=== PATIENT | male | born 1985 | race Caucasian/White ===

== ENCOUNTER 2021-05-25 18:37 | Inpatient (IN) | payer OTHER ==
[2021-05-25] MEDS ORDERED: SODIUM CHLORIDE 0.9% 1,000 ML IV STA (21:15)
[2021-05-25] MEDS ORDERED: HYDROmorphone 1 MG/ML 1 ML SYRINGE IVP STA (21:15)
[2021-05-25] MEDS ORDERED: SODIUM CHLORIDE 0.9% 500 ML 500 ML IV STA (21:15)
[2021-05-25] MEDS ORDERED: ONDANSETRON 4 MG/2 ML VIAL IVP STA (21:15)
--- NOTE | 2021-05-25 21:27 | ED ---
Abdominal Pain HPI - General Chief Complaint: Abdominal Pain Stated Complaint: Abdominal Pain Time Seen by Provider: 05/25/21 21:02 Source: EMS Mode of arrival: EMS Limitations: no limitations - History of Present Illness Initial Comments: 35-year-old male patient with past history significant for pancreatitis presents to the emergency department today for evaluation of right upper quadrant abdominal pain. Patient states the pain started yesterday and has worsened. Denies any nausea or vomiting. Denies constipation or diarrhea. Denies radiation of the pain through to his back. Has not had any fevers. States his pain is worse than his usual pancreatitis pain. Denies taking any medication for his symptoms. Denies history of abdominal surgery. He denies any shortness of breath. States he does have history of heavy alcohol use, last intake was 05/20/21. - Related Data Home Medications Medication Instructions Recorded Confirmed Folic Acid 0.8 mg PO DAILY 05/25/21 05/25/21 Magnesium 250 mg PO DAILY 05/25/21 05/25/21 Potassium Gluconate [Potassium 99 mg PO DAILY 05/25/21 05/25/21 Gluconate ER] Thiamine HCl [Vitamin B-1] 100 mg PO DAILY 05/25/21 05/25/21 Allergies Allergy/AdvReac Type Severity Reaction Status Date / Time No Known Allergies Allergy Verified 05/25/21 23:15 Review of Systems ROS Statement: Those systems with pertinent positive or pertinent negative responses have been documented in the HPI. ROS Other: All systems not noted in ROS Statement are negative. Past Medical History Additional Past Medical History / Comment(s): pancrentitis History of Any Multi-Drug Resistant Organisms: None Reported Past Surgical History: No Surgical Hx Reported Past Psychological History: No Psychological Hx Reported Smoking Status: Current every day smoker Past Alcohol Use History: Occasional Past Drug Use History: None Reported General Exam Limitations: no limitations General appearance: alert, in no apparent distress, other (This is a well- developed, well-nourished adult male in mild distress related to pain.) ENT exam: Present: normal exam, normal oropharynx, mucous membranes moist Respiratory exam: Present: normal lung sounds bilaterally. Absent: respiratory distress, wheezes, rales, rhonchi, stridor Cardiovascular Exam: Present: normal rhythm, tachycardia, normal heart sounds. Absent: systolic murmur, diastolic murmur, rubs, gallop, clicks GI/Abdominal exam: Present: soft, tenderness (Midepigastric, right upper quadrant), normal bowel sounds. Absent: distended, guarding, rebound, rigid Neurological exam: Present: alert, oriented X3, CN II-XII intact Psychiatric exam: Present: normal affect, normal mood Skin exam: Present: warm, dry, intact, normal color. Absent: rash Course Vital Signs 05/25/21 05/25/21 05/25/21 20:02 21:45 23:14 Temperature 98.4 F Pulse Rate 119 H 101 H 111 H Respiratory 20 18 18 Rate Blood Pressure 144/88 135/95 137/100 O2 Sat by Pulse 98 97 96 Oximetry 05/26/21 00:09 Temperature 98.1 F Pulse Rate 94 Respiratory 18 Rate Blood Pressure 136/98 O2 Sat by Pulse 97 Oximetry Medical Decision Making - Medical Decision Making 35-year-old male patient presented for evaluation of upper abdominal pain. Does have history of pancreatitis felt to be related to alcohol use. Physical examination did reveal upper abdominal tenderness. Labs reviewed and did reveal elevated white blood cell count at 18. Lipase is 2994. He is given IV fluids, pain medication, nausea medication. He'll be admitted to the hospital for further evaluation and monitoring. GI was consulted. Patient is agreeable to this plan. My attending is Dr. Hearn. - Lab Data Result diagrams: 05/25/21 21:41 05/25/21 21:41 Lab Results 05/25/21 05/25/21 05/25/21 Range/Units 21:41 21:41 21:41 WBC 18.1 H (3.8-10.6) k/uL RBC 4.92 (4.30-5.90) m/uL Hgb 16.2 (13.0-17.5) gm/dL Hct 48.5 (39.0-53.0) % MCV 98.6 (80.0-100.0) fL MCH 33.0 (25.0-35.0) pg MCHC 33.4 (31.0-37.0) g/dL RDW 12.7 (11.5-15.5) % Plt Count 380 (150-450) k/uL MPV 6.9 Neutrophils % 81 % Lymphocytes % 12 % Monocytes % 4 % Eosinophils % 1 % Basophils % 1 % Neutrophils # 14.7 H (1.3-7.7) k/uL Lymphocytes # 2.2 (1.0-4.8) k/uL Monocytes # 0.7 (0-1.0) k/uL Eosinophils # 0.2 (0-0.7) k/uL Basophils # 0.1 (0-0.2) k/uL Sodium 140 (137-145) mmol/L Potassium 3.6 (3.5-5.1) mmol/L Chloride 102 (98-107) mmol/L Carbon Dioxide 22 (22-30) mmol/L Anion Gap 16 mmol/L BUN 14 (9-20) mg/dL Creatinine 0.58 L (0.66-1.25) mg/dL Est GFR (CKD-EPI)AfAm >90 (>60 ml/min/1.73 sqM) Est GFR (CKD-EPI)NonAf >90 (>60 ml/min/1.73 sqM) Glucose 122 H (74-99) mg/dL Plasma Lactic Acid Rob (0.7-2.0) mmol/L Calcium 10.2 (8.4-10.2) mg/dL Total Bilirubin 1.0 (0.2-1.3) mg/dL AST 42 (17-59) U/L ALT 17 (4-49) U/L Alkaline Phosphatase 149 H (38-126) U/L Total Protein 8.0 (6.3-8.2) g/dL Albumin 4.6 (3.5-5.0) g/dL Lipase 3993 H (23-300) U/L Urine Color Dark Yellow Urine Appearance Clear (Clear) Urine pH 6.0 (5.0-8.0) Ur Specific [place] 1.033 (1.001-1.035) Urine Protein 2+ H (Negative) Urine Glucose (UA) Negative (Negative) Urine Ketones 3+ H (Negative) Urine Blood Negative (Negative) Urine Nitrite Negative (Negative) Urine Bilirubin 1+ H (Negative) Urine Urobilinogen 4.0 (<2.0) mg/dL Ur Leukocyte Esterase Negative (Negative) Urine WBC <1 (0-5) /hpf Hyaline Casts 9 H (0-2) /lpf Urine Mucus Many H (None) /hpf 05/25/21 Range/Units 21:41 WBC (3.8-10.6) k/uL RBC (4.30-5.90) m/uL Hgb (13.0-17.5) gm/dL Hct (39.0-53.0) % MCV (80.0-100.0) fL MCH (25.0-35.0) pg MCHC (31.0-37.0) g/dL RDW (11.5-15.5) % Plt Count (150-450) k/uL MPV Neutrophils % % Lymphocytes % % Monocytes % % Eosinophils % % Basophils % % Neutrophils # (1.3-7.7) k/uL Lymphocytes # (1.0-4.8) k/uL Monocytes # (0-1.0) k/uL Eosinophils # (0-0.7) k/uL Basophils # (0-0.2) k/uL Sodium (137-145) mmol/L Potassium (3.5-5.1) mmol/L Chloride (98-107) mmol/L Carbon Dioxide (22-30) mmol/L Anion Gap mmol/L BUN (9-20) mg/dL Creatinine (0.66-1.25) mg/dL Est GFR (CKD-EPI)AfAm (>60 ml/min/1.73 sqM) Est GFR (CKD-EPI)NonAf (>60 ml/min/1.73 sqM) Glucose (74-99) mg/dL Plasma Lactic Acid Rob 1.3 (0.7-2.0) mmol/L Calcium (8.4-10.2) mg/dL Total Bilirubin (0.2-1.3) mg/dL AST (17-59) U/L ALT (4-49) U/L Alkaline Phosphatase (38-126) U/L Total Protein (6.3-8.2) g/dL Albumin (3.5-5.0) g/dL Lipase (23-300) U/L Urine Color Urine Appearance (Clear) Urine pH (5.0-8.0) Ur Specific [place] (1.001-1.035) Urine Protein (Negative) Urine Glucose (UA) (Negative) Urine Ketones (Negative) Urine Blood (Negative) Urine Nitrite (Negative) Urine Bilirubin (Negative) Urine Urobilinogen (<2.0) mg/dL Ur Leukocyte Esterase (Negative) Urine WBC (0-5) /hpf Hyaline Casts (0-2) /lpf Urine Mucus (None) /hpf Disposition Clinical Impression: Acute pancreatitis Disposition: ADMITTED IP TO THIS [facility] Condition: Serious Decision to Admit Reason: Admit from EC Decision Date: 05/25/21 Decision Time: 23:37
[2021-05-25 21:50] LABS: Basophils # (A) 0.1 k/uL (0-0.2); Basophils % (A) 1 %; Eosinophils # (A) 0.2 k/uL (0-0.7); Eosinophils % (A) 1 %; HCT 48.5 % (39.0-53.0); HGB 16.2 gm/dL (13.0-17.5); Lymphocytes # (A) 2.2 k/uL (1.0-4.8); Lymphocytes % (A) 12 %; MCHC 33.4 g/dL (31.0-37.0); MCV 98.6 fL (80.0-100.0); Mean Platelet Volume 6.9; Monocytes # (A) 0.7 k/uL (0-1.0); Monocytes % (A) 4 %; Neutrophils # (A) 14.7 k/uL (1.3-7.7); Neutrophils % (A) 81 %; Platelet Count 380 k/uL (150-450); RBC 4.92 m/uL (4.30-5.90); RDW 12.7 % (11.5-15.5); WBC 18.1 k/uL (3.8-10.6)
[2021-05-25 21:58] LABS: ALT 17 U/L (4-49); AST 42 U/L (17-59); African American GFR (CKD) >90 (>60 ml/min/1.73 sqM); Albumin 4.6 g/dL (3.5-5.0); Alkaline Phosphatase 149 U/L (38-126); Anion Gap 16 mmol/L; Blood Urea Nitrogen 14 mg/dL (9-20); Calcium 10.2 mg/dL (8.4-10.2); Carbon Dioxide 22 mmol/L (22-30); Chloride 102 mmol/L (98-107); Glucose 122 mg/dL (74-99); Non-African American GFR(CKD) >90 (>60 ml/min/1.73 sqM); Potassium 3.6 mmol/L (3.5-5.1); Sodium 140 mmol/L (137-145)
[2021-05-25 22:10] LABS: Appearance,Urine Clear (Clear); Bilirubin,Urine 1+ (Negative); Blood,Urine Negative (Negative); Color,Urine Dark Yellow; Glucose,Urine (UA) Negative (Negative); Hyaline Casts,Urine 9 /lpf (0-2); Ketones,Urine 3+ (Negative); Leukocyte Esterase,Urine Negative (Negative); Mucus,Urine Many /hpf; Nitrite,Urine Negative (Negative); Protein,Urine 2+ (Negative); Specific Gravity,Urine 1.033 (1.001-1.035); WBC,Urine <1 /hpf (0-5)
[2021-05-25 22:35] LABS: Lipase 3993 U/L (23-300)
[2021-05-25] MEDS ORDERED: MORPHINE SULFATE 4 MG/ML SYRINGE IVP STA (23:24)
[2021-05-25] MEDS ORDERED: NALOXONE 0.4 MG/ML 1 ML VIAL IV PRN (23:36)
[2021-05-25] MEDS ORDERED: ONDANSETRON 4 MG/2 ML VIAL IVP PRN (23:36)
[2021-05-26] MEDS: SODIUM CHLORIDE 0.9% 1,000 ML IV SCH ×5 (00:10→20:38)
--- NOTE | 2021-05-26 01:25 | P.HPIM ---
History of Present Illness H&P Date: 05/26/21 The patient is a 35-year-old male with a PMH of EtOH abuse who presents to the emergency room with complaints of abdominal pain. The patient reports that he drank heavily on and since this past Sunday, he has had epigastric abdominal pain with radiation to the back. The patient reports a prior history of such pain, which is usually followed by bouts of heavy drinking. He reports a long-standing history of excessive alcohol use, ranging from 1-2 pints several times a week. During his current episode, he reports that the pain is 7 out of 10 at rest, aching in nature, radiating to the back, with associated nausea without vomiting. Reports associated anorexia over the past 2 or 3 days. Denied chest pain, shortness of breath, vomiting, fever, chills, cough, diarrhea. He underwent an extensive evaluation in the emergency room with laboratory evaluation remarkable for lipase of 3993, and WBC count 18.1. Review of systems: Pertinent positives and negatives as discussed in HPI, a complete review of systems was performed and all other systems are negative. Physical examination: General: non toxic, no distress, appears at stated age, normal weight Derm: no unusual rashes/lesions no unusual ecchymoses, warm, dry Head: atraumatic, normocephalic, symmetric Eyes: EOMI, no lid lag, anicteric sclera, pupils equal round reactive to light ENT: Nose and ears atraumatic, no thrush, no pharyngeal erythema Neck: No thyromegaly, no cervical lymphadenopathy, trachea midline, supple Mouth: no lip lesion, mucus membranes moist Cardiovascular: S1S2 reg, no murmur, positive posterior tibial pulse bilateral, no edema, capillary refill less than 2 seconds Lungs: CTA bilateral, no rhonchi, no rales , no accessory muscle use Abdominal: soft, epigastric tenderness, some guarding, no appreciable organomegaly, normal bowel sounds Ext: no gross muscle atrophy, muscle strength 5 out of 5 in all 4 extremities grossly, no contractures, Neuro: CN II-XI grossly intact, light touch intact all 4 extremities, finger to nose within normal limits, Psych: Alert, oriented, appropriate affect Assessment/plan Alcoholic pancreatitis -IV fluids -Pain control -Strongly advised on the importance of cessation from alcohol use -NPO for now Leukocytosis -Likely due to acute stressor -No signs of active infection at this time -Monitor for now DVT prophylaxis -Heparin subq The patient is admitted with an anticipated less than 2 midnight stay for evaluation of pancreatitis CODE STATUS: Full Code Discussed with: Patient Anticipated discharge date: [address]: Home Past Medical History Additional Past Medical History / Comment(s): pancrentitis History of Any Multi-Drug Resistant Organisms: None Reported Past Surgical History: No Surgical Hx Reported Past Psychological History: No Psychological Hx Reported Smoking Status: Current every day smoker Past Alcohol Use History: Occasional Past Drug Use History: None Reported Medications and Allergies Home Medications Medication Instructions Recorded Confirmed Type Folic Acid 0.8 mg PO DAILY 05/25/21 05/25/21 History Magnesium 250 mg PO DAILY 05/25/21 05/25/21 History Potassium Gluconate [Potassium 99 mg PO DAILY 05/25/21 05/25/21 History Gluconate ER] Thiamine HCl [Vitamin B-1] 100 mg PO DAILY 05/25/21 05/25/21 History Allergies Allergy/AdvReac Type Severity Reaction Status Date / Time No Known Allergies Allergy Verified 05/25/21 23:15 Physical Exam Vitals: Vital Signs Temp Pulse Resp BP Pulse Ox 05/26/21 00:09 98.1 F 94 18 136/98 97 05/25/21 23:14 111 H 18 137/100 96 05/25/21 21:45 101 H 18 135/95 97 05/25/21 20:02 98.4 F 119 H 20 144/88 98 Intake and Output 05/25/21 05/25/21 05/26/21 14:59 22:59 06:59 Other: Weight 61.235 kg Results CBC & Chem 7: 05/25/21 21:41 05/25/21 21:41 Labs: Abnormal Lab Results - Last 24 Hours (Table) 05/25/21 05/25/21 05/25/21 Range/Units 21:41 21:41 21:41 WBC 18.1 H (3.8-10.6) k/uL Neutrophils # 14.7 H (1.3-7.7) k/uL Creatinine 0.58 L (0.66-1.25) mg/dL Glucose 122 H (74-99) mg/dL Alkaline Phosphatase 149 H (38-126) U/L Lipase 3993 H (23-300) U/L Urine Protein 2+ H (Negative) Urine Ketones 3+ H (Negative) Urine Bilirubin 1+ H (Negative) Hyaline Casts 9 H (0-2) /lpf Urine Mucus Many H (None) /hpf
[2021-05-26] MEDS: MORPHINE SULFATE 4 MG/ML SYRINGE IV PRN ×6 (03:29→21:49)
[2021-05-26 09:44] LABS: HCT 40.6 % (39.6-50.0); MCV 96.7 fL (80.0-97.0); Mean Platelet Volume 9.4 fL (9.5-12.2); Platelet Count 314 X 10*3/uL (140-440); RDW 13.2 % (11.5-14.5)
--- NOTE | 2021-05-26 09:54 | P.PN ---
<Manuel Saenz - Last Filed: 05/26/21 16:24> Subjective Progress Note Date: 05/26/21 Hospital course: Patient is a very pleasant 35-year-old male with a past medical history of chr onic pancreatitis and EtOH use/abuse previously drinking 1-2 pints daily and has weaned himself down to 1-2 pints 3 times per week with last drink being on 05/20/21. Patient presented to the emergency department with a chief complaint of abdominal pain. He was found to have leukocytosis with WBC count of 18.1 with a left shift with neutrophils of 14.7, elevated alkaline phosphatase of 149, and acute pancreatitis with lipase of 3993. Patient was admitted under our services with consultation to GI. CT abdomen and pelvis with contrast revealed severe acute pancreatitis on background chronic pancreatitis, areas of necrosis thought present as significant hypodense areas are noted, pancreatic ductal and biliary dilation with nonvisualization of both structures near the duodenal ampulla concerning for obstruction, possibly due to inflammatory changes causing significant narrowing or occlusion of both structures, however an obstructive mass can not be entirely excluded, pt also with significant local mass effect due to ill-defined fluid and fat stranding accompanied by adjacent reactive a denopathy. Morning labs also reveal acute elevation of liver enzymes with AST of 542, ALT of 151, alkaline phosphatase of 257, and total bili of 2.90. GI recommended transfer to tertiary facility. Attempts made at contacting [facility] stating no beds available at this time, [facility] denied transfer of this patient also stating no beds available for this patient at this time. Spoke with physician at [facility] transfer center stating they are unable to accept transfer of this patient at this time as there are no beds available and do not recommend ERCP or any surgical procedures, recommending managing this patient conservatively and if bilirubin continues to elevate they recommend we recontact them at that time. Physical exam: Vital signs reviewed and stable. General: Nontoxic, no distress and appears stated age. Derm: Skin warm and dry, normal coloration for ethnicity. Head: Atraumatic, normocephalic and symmetric. Eyes: EOMs intact, no lid lag, and anicteric sclera Mouth: no lip lesions, mucus membranes moist Cardiovascular: regular rate and rhythm with normal S1S2, no murmur, positive posterior tibial pulses bilaterally, and cap refill < 2 seconds. Lungs: Respirations even, regular, and unlabored on room air. Lungs CTA bilaterally, no rhonchi, no rales, no wheezing, and no accessory muscle usage. Abdominal: soft, diffuse tenderness throughout abdomen upon palpation worse in LUQ, epigastric region and flank. No appreciable organomegaly Ext: ROM intact. No gross muscle atrophy, no edema, no contractures Neuro: Speech clear, face symmetrical and CN II-XII grossly intact with no noted focal neuro deficits Psych: Alert and oriented to person, place, time, and situation. Appropriate and pleasant affect. Assessment and Plan of Care: Severe acute pancreatitis on chronic pancreatitis, secondary to alcoholic pancreatitis Acutely elevated liver enzymes, CT revealing concerns of pancreatic ductal and biliary dilation concerning for obstruction at duodenal ampulla -Gen. surgery following, recommended transfer to tertiary facility. No accepting facilities at this time. We will continue managing conservatively and monitoring closely. -Continue with generous IV hydration -Safe and supportive care, Zofran as needed for nausea/vomiting, morphine as needed for pain management. -Repeat lipase and liver profile with a.m. labs. -Hold hepatotoxic medications -NPO Alcohol use/abuse -[facility] Protocol with symptom triggered medication management with benzodiazepines. -Continuous IV hydration. -Thiamine 100 mg twice a day -Multivitamin daily -Folate 1 mg daily -Seizure, fall, aspiration, and elopement precautions in place. -Urine drug screen -Continued close monitoring of electrolytes and replace as needed. -Telemetry monitoring. Leukocytosis is believed to be reactive, resolved CODE STATUS: Full code DVT prophylaxis: Heparin Discussed with: Patient and RN Anticipated discharge date: Clinical course to determine Anticipated discharge place: Home A total of 45 minutes was spent on the care of this complex patient more than 50 % of the time was spent in counseling and care coordination. Objective - Vital Signs Vital signs: Vital Signs Temp 97.6 F 05/26/21 07:00 Pulse 89 05/26/21 07:00 Resp 16 05/26/21 07:50 BP 136/96 05/26/21 07:00 Pulse Ox 96 05/26/21 07:00 Intake & Output 05/25/21 05/26/21 05/26/21 18:59 06:59 18:59 Weight 61.235 kg Other: Voiding Method Toilet # Voids 0 - Labs CBC & Chem 7: 05/26/21 05:50 05/26/21 05:50 Labs: Abnormal Lab Results - Last 24 Hours (Table) 05/25/21 05/25/21 05/25/21 Range/Units 21:41 21:41 21:41 WBC 18.1 H (3.8-10.6) k/uL RBC (4.40-5.60) X 10*6/uL MPV (9.5-12.2) fL Neutrophils # 14.7 H (1.3-7.7) k/uL Creatinine 0.58 L (0.66-1.25) mg/dL Glucose 122 H (74-99) mg/dL Alkaline Phosphatase 149 H (38-126) U/L Lipase 3993 H (23-300) U/L Urine Protein 2+ H (Negative) Urine Ketones 3+ H (Negative) Urine Bilirubin 1+ H (Negative) Hyaline Casts 9 H (0-2) /lpf Urine Mucus Many H (None) /hpf 05/26/21 Range/Units 05:50 WBC (3.8-10.6) k/uL RBC 4.20 L (4.40-5.60) X 10*6/uL MPV 9.4 L (9.5-12.2) fL Neutrophils # (1.3-7.7) k/uL Creatinine (0.66-1.25) mg/dL Glucose (74-99) mg/dL Alkaline Phosphatase (38-126) U/L Lipase (23-300) U/L Urine Protein (Negative) Urine Ketones (Negative) Urine Bilirubin (Negative) Hyaline Casts (0-2) /lpf Urine Mucus (None) /hpf <Cesario Lozano - Last Filed: 05/26/21 17:48> Subjective I reviewed the documentation as provided by the HOLLY above, who is the original author of this note. I agree with the documented assessment and plan, with the following changes: None Objective - Vital Signs Vital signs: Vital Signs Temp 98.2 F 05/26/21 14:09 Pulse 83 05/26/21 14:09 Resp 16 05/26/21 14:09 BP 148/89 05/26/21 14:09 Pulse Ox 95 05/26/21 14:09 Intake & Output 05/25/21 05/26/21 05/26/21 18:59 06:59 18:59 Intake Total 540 Balance 540 Weight 61.235 kg 61.235 kg Intake: Oral 540 Other: Voiding Method Toilet # Voids 0 3 # Bowel Movements 1 - Labs CBC & Chem 7: 05/26/21 05:50 05/26/21 05:50 Labs: Abnormal Lab Results - Last 24 Hours (Table) 05/25/21 05/25/21 05/25/21 Range/Units 21:41 21:41 21:41 WBC 18.1 H (3.8-10.6) k/uL RBC (4.40-5.60) X 10*6/uL MPV (9.5-12.2) fL Neutrophils # 14.7 H (1.3-7.7) k/uL Creatinine 0.58 L (0.66-1.25) mg/dL Glucose 122 H (74-99) mg/dL Total Bilirubin (0.30-1.20) mg/dL AST (14-35) U/L ALT (10-49) U/L Alkaline Phosphatase 149 H (38-126) U/L Total Protein (6.2-8.2) g/dL Albumin (3.8-4.9) g/dL Albumin/Globulin Ratio (1.60-3.17) g/dL Lipase 3993 H (23-300) U/L Urine Protein 2+ H (Negative) Urine Ketones 3+ H (Negative) Urine Bilirubin 1+ H (Negative) Hyaline Casts 9 H (0-2) /lpf Urine Mucus Many H (None) /hpf 05/26/21 05/26/21 05/26/21 Range/Units 05:50 05:50 05:50 WBC (3.8-10.6) k/uL RBC 4.20 L (4.40-5.60) X 10*6/uL MPV 9.4 L (9.5-12.2) fL Neutrophils # (1.3-7.7) k/uL Creatinine (0.66-1.25) mg/dL Glucose (74-99) mg/dL Total Bilirubin 2.90 H (0.30-1.20) mg/dL AST 542 H (14-35) U/L ALT 151 H (10-49) U/L Alkaline Phosphatase 257 H (38-126) U/L Total Protein 5.7 L (6.2-8.2) g/dL Albumin 3.4 L (3.8-4.9) g/dL Albumin/Globulin Ratio 1.48 L (1.60-3.17) g/dL Lipase 435 H (23-300) U/L Urine Protein (Negative) Urine Ketones (Negative) Urine Bilirubin (Negative) Hyaline Casts (0-2) /lpf Urine Mucus (None) /hpf
[2021-05-26 10:11] LABS: African American GFR (CKD) 148.9 (60.0-200.0); Albumin 3.4 g/dL (3.8-4.9); Albumin/Globulin Ratio 1.48 (1.60-3.17); Anion Gap 11.9 mmol/L (10.00-18.00); BUN/Creat Ratio 17.5 Ratio (12.00-20.00); Blood Urea Nitrogen 10.5 mg/dL (9.0-27.0); Carbon Dioxide 20.1 mmol/L (20.0-27.5); Globulin 2.3 g/dL (1.6-3.3); Non-African American GFR(CKD) 128.4 (60.0-200.0); Potassium 3.8 mmol/L (3.5-5.5); Total Bilirubin 2.9 mg/dL (0.30-1.20); Total Protein 5.7 g/dL (6.2-8.2)
[2021-05-26] MEDS: IOPAMIDOL CONTRAST (ORAL USE) VIAL PO PRN ×2 (10:56→11:47)
[2021-05-26] MEDS ORDERED: LORazepam 2 MG/ML INJ IV PRN ×3 (12:37)
[2021-05-26 13:12] VITALS: BMI 18.3
--- NOTE | 2021-05-26 13:20 | CT ---
EXAMINATION TYPE: CT abdomen pelvis w con DATE OF EXAM: 05/26/2021 COMPARISON: None. HISTORY: abdominal pain, elevated lipase, acute pancreatitis CT DLP: 444.5 mGycm, Automated Exposure Control for Dose Reduction was Utilized. CONTRAST: CT scan of the abdomen and pelvis is performed with oral and with IV Contrast, patient injected with 100 mL of Isovue 300. FINDINGS: LUNG BASES: Dependent atelectasis in both bases. LIVER/GB: Heterogeneous hypodense liver which is normal in size. Gallbladder has distended margins an d is borderline dilated. There is mild central intrahepatic and extrahepatic biliary dilatation up to 10 mm. There is some tapering at the ampulla. PANCREAS: Markedly enlarged and heterogeneous pancreas particularly in the head where there is hetero geneous 9.5 x 9.2 cm heterogeneity suspected pancreatic tissue axial image 31 causing significant loc al mass effect. Craniocaudal dimension around 10 cm coronal image 40. Some focal calcifications near the duodenal ampulla in the pancreatic head are present. Pancreatic duct is visualized to the ampulla and is mild to moderately dilated up to 7 mm coronal image 34 near this level. Surrounding ill-defin ed fluid and fat stranding is present. There is adjacent reactive adenopathy from reference and 1.5 x 1.5 cm right peripancreatic lymph node axial image 31. Areas of nonenhancement likely present. No we ll-formed fluid collection seen. Suspicious Surrounding soft tissue or loss of fat plane encroaches a nd appears to encase portions of the SMA for reference axial image 34. Infiltrative mass or neoplasm such as lymphoma would be in differential. SPLEEN: No significant abnormality is seen. ADRENALS: No significant abnormality is seen. KIDNEYS: Mild to moderately distended bladder. BOWEL: Contrast within visualized distal esophagus with small sized hiatal hernia. Correlate for ernestine roesophageal reflux. Oral contrast does not reach level of terminal ileum. No suspicious small or lar ge bowel dilatation. There is moderate to severe wall thickening in the first second and proximal thi rd portion of the duodenal sweep which is deviated towards the periphery from the heterogeneous pancr eatic tissue. PROSTATE/SEMINAL VESICLES: No gross abnormality seen. LYMPH NODES: Abnormal abdominal adenopathy surrounds the pancreas. There is 2.3 x 1.7 cm left-sided l ymph node noted in the midabdomen axial image 34 for reference. OSSEOUS STRUCTURES: No significant abnormality is seen. OTHER: Moderate amount of free fluid in pelvis. IMPRESSION: Findings suspicious for a severe acute pancreatitis on background chronic pancreatitis. N o well-formed fluid collection seen. Areas of necrosis are thought present as significant hypodense a reas are noted. There is pancreatic ductal and biliary dilatation with nonvisualization of both struc tures near the duodenal ampulla. There may be reactive inflammatory change causing significant narrow ing or occlusion of both structures. Obstructing mass felt less likely but not entirely excluded. Sig nificant local mass effect is present. Adjacent reactive adenopathy is seen. Case discussed with ordering nurse practitioner via telephone at time of dictation.
--- NOTE | 2021-05-26 15:22 | P.CONS ---
History of Present Illness - Reason for Consult Consult date: 05/26/21 Pancreatitis Requesting physician: Gaby Caceres - Chief Complaint Abdominal pain - History of Present Illness This is a 35-year-old white male who presented to the emergency department yesterday complaints of severe abdominal pain. Patient states pain started on Sunday and has progressively gotten worse. He does have a history of alcoholic pancreatitis with his first episode being approximately 3 years ago. Since then he has had pancreatitis 5-6 times with his last admission approximately one year ago. Patient states he was a daily drinker at least a pint a day who cut back 6 months ago to drinking about twice a week pain at a time. Last time drinking w as on alyse. He's had no associated nausea or vomiting. He states that the abdominal pain is the worst he's ever had. He denies any new medications. His previous hospitalizations have been done at [facility]. Admitting labs WBC 18.1 hemoglobin 16.2 hematocrit 48 platelet count 380,000 total bilirubin 1.0 AST 42 ALT 17 alkaline phosphatase 149 lipase 3993. Is no initial imaging ordered. Patient is complaining of severe pain which is in the right upper quadrant mid abdomen and epigastric region. His last bowel movement was yesterday. Repeat labs today show WBC 9.9 hemoglobin 13 platelet count 314,000 total bilirubin 2.9, AST 542 ALT 151 alkaline phosphatase 257 lipase 435 . This Review of Systems REVIEW OF SYSTEMS: CARDIOPULMONARY: No chest pain or shortness of breath. Gastrointestinal: Severe sharp abdominal pain. No nausea or vomiting. No hematemesis, coffee-ground emesis. No rectal bleeding, or melena. GENITOURINARY: No dysuria or hematuria. MUSCULOSKELETAL: Reports normal range of motion., Joint pain. SKIN: No rashes. No jaundice. ENDOCRINE: No chills, fevers. No excessive weight gain or loss. No polydipsia or polyuria. PSYCHIATRIC: Unremarkable. NEUROLOGY: No change in mental status. Denies dizziness, headache. ENT: Vision unremarkable. CONSTITUTIONAL: No recent weight loss. No fever, chills, night sweats. Past Medical History Additional Past Medical History / Comment(s): pancrentitis History of Any Multi-Drug Resistant Organisms: None Reported Past Surgical History: No Surgical Hx Reported Past Anesthesia/Blood Transfusion Reactions: No Reported Reaction Past Psychological History: No Psychological Hx Reported Smoking Status: Current every day smoker Past Alcohol Use History: Occasional Past Drug Use History: None Reported Medications and Allergies Home Medications Medication Instructions Recorded Confirmed Type Folic Acid 0.8 mg PO DAILY 05/25/21 05/25/21 History Magnesium 250 mg PO DAILY 05/25/21 05/25/21 History Potassium Gluconate [Potassium 99 mg PO DAILY 05/25/21 05/25/21 History Gluconate ER] Thiamine HCl [Vitamin B-1] 100 mg PO DAILY 05/25/21 05/25/21 History Allergies Allergy/AdvReac Type Severity Reaction Status Date / Time No Known Allergies Allergy Verified 05/25/21 23:15 Physical Exam Vitals: Vital Signs Temp Pulse Pulse Resp BP BP Pulse Ox 05/26/21 07:50 16 05/26/21 07:00 97.6 F 89 16 136/96 96 05/26/21 01:29 98.1 F 99 16 132/86 96 05/26/21 00:09 98.1 F 94 18 136/98 97 05/25/21 23:14 111 H 18 137/100 96 05/25/21 21:45 101 H 18 135/95 97 05/25/21 20:02 98.4 F 119 H 20 144/88 98 Intake and Output 05/25/21 05/26/21 05/26/21 22:59 06:59 14:59 Other: Voiding Method Toilet # Voids 0 Weight 61.235 kg 61.235 kg General appearance: The patient is alert, oriented, appears in no acute d istress. HET: Head is normocephalic and atraumatic. Conjunctiva pink. Sclera anicteric. Neck: Supple without lymphadenopathy. Trachea midline. Heart: S1 S2. Regular rate and rhythm. Lungs: Clear to auscultation. Abdomen: Soft, diffuse tenderness, greatest in the RUQ and epigastric region, nondistended with bowel sounds. No guarding or rigidity. Skin: No rashes. No jaundice. Extremities: Normal skin color and turgor. No pedal edema. Neurological: No focal deficits. Alert and oriented x3. Results CBC & Chem 7: 05/26/21 05:50 05/26/21 05:50 Labs: Abnormal Lab Results - Last 24 Hours (Table) 05/25/21 05/25/21 05/25/21 Range/Units 21:41 21:41 21:41 WBC 18.1 H (3.8-10.6) k/uL RBC (4.40-5.60) X 10*6/uL MPV (9.5-12.2) fL Neutrophils # 14.7 H (1.3-7.7) k/uL Creatinine 0.58 L (0.66-1.25) mg/dL Glucose 122 H (74-99) mg/dL Total Bilirubin (0.30-1.20) mg/dL AST (14-35) U/L ALT (10-49) U/L Alkaline Phosphatase 149 H (38-126) U/L Total Protein (6.2-8.2) g/dL Albumin (3.8-4.9) g/dL Albumin/Globulin Ratio (1.60-3.17) g/dL Lipase 3993 H (23-300) U/L Urine Protein 2+ H (Negative) Urine Ketones 3+ H (Negative) Urine Bilirubin 1+ H (Negative) Hyaline Casts 9 H (0-2) /lpf Urine Mucus Many H (None) /hpf 05/26/21 05/26/21 Range/Units 05:50 05:50 WBC (3.8-10.6) k/uL RBC 4.20 L (4.40-5.60) X 10*6/uL MPV 9.4 L (9.5-12.2) fL Neutrophils # (1.3-7.7) k/uL Creatinine (0.66-1.25) mg/dL Glucose (74-99) mg/dL Total Bilirubin 2.90 H (0.30-1.20) mg/dL AST 542 H (14-35) U/L ALT 151 H (10-49) U/L Alkaline Phosphatase 257 H (38-126) U/L Total Protein 5.7 L (6.2-8.2) g/dL Albumin 3.4 L (3.8-4.9) g/dL Albumin/Globulin Ratio 1.48 L (1.60-3.17) g/dL Lipase (23-300) U/L Urine Protein (Negative) Urine Ketones (Negative) Urine Bilirubin (Negative) Hyaline Casts (0-2) /lpf Urine Mucus (None) /hpf Comments: CT abdomen and pelvis with findings suspicious for severe acute pancreatitis and background chronic pancreatitis. No well-formed fluid collection seen. Areas of necrosis are thought present at significant hypodense areas are noted. There is pancreatic ductal and biliary dilation with nonvisualization of both structures near the duodenal ampulla. There may be reactive inflammatory change causing significant narrowing or occlusion of both structures. Obstructing mass felt like likely but not entirely excluded. Significant local mass effect is present. Adjacent reactive adenopathy is seen. Findings discussed with Dr. Vidal, he does state the severity of case and concern for significant inflammation. CT scan - abdomen: report reviewed Assessment and Plan (1) Acute pancreatitis Narrative/Plan: 35-year-old male with a history of alcoholic pancreatitis. First episode approximately 3 years ago with 5-6 sterilization's. His last hospitalization was approximately one year ago. Patient has a history of significant alcohol abuse for several years and was daily drinker of at least a pint a day. Approximately 6 months ago he states he cut back to about 2 days a week. He had his last drink on and this past Sunday started having abdominal pain. States pain has progressively gotten worse and is the worse it has ever been. He has no associated nausea or vomiting. He does have a decreased appetite. On admission he had no elevation in his LFTs with a lipase of 3000. Repeat labs today show elevation in his bilirubin AST and ALT with decrease in his lipase. There was no initial imaging so a CT of the abdomen and pelvis was ordered showing severe acute pancreatitis on chronic pancreatitis. There is no concern for a fluid-filled collection however there is significant inflammation as well as pancreatic ductal and biliary dilation with nonvisualization of both structures near the duodenal ampulla. The findings were called to by Dr. Vidal who was concerned of the severity of his pancreatitis. This was discussed with the patient for possible transfer to tertiary center for further evaluation and treatment. Current Visit: No Status: Acute Code(s): K85.90 - ACUTE PANCREATITIS WITHOUT NECROSIS OR INFECTION, UNSP SNOMED Code(s): 807502218 Plan: 1. Continue symptomatic and supportive care 2. Aggressive IV hydration 3. Protonix 40 mg twice a day 4. Continue pain management 5. Nothing by mouth with ice chips 6. Recommend transfer to tertiary center for further evaluation of severe pancreatitis possible EUS Thank you for this consultation, we will continue to follow closely. Dr. Nena Rodriguez I agree with the dictator's note, documented as a scribe by Bita Pineda.
[2021-05-26] MEDS: THIAMINE 100 MG TAB PO SCH (18:34)
[2021-05-26] MEDS: PANTOPRAZOLE 40 MG/10 ML VIAL IVP SCH (20:38)
[2021-05-26] MEDS: HEPARIN SODIUM,PORCINE/PF 5,000 UNIT/0.5 ML SYRINGE SQ SCH (22:35)
[2021-05-27] MEDS: SODIUM CHLORIDE 0.9% 1,000 ML IV SCH ×5 (00:40→20:17)
[2021-05-27] MEDS: MORPHINE SULFATE 4 MG/ML SYRINGE IV PRN ×7 (00:46→21:33)
[2021-05-27] MEDS: PANTOPRAZOLE 40 MG/10 ML VIAL IVP SCH ×2 (07:50→20:13)
[2021-05-27] MEDS: HEPARIN SODIUM,PORCINE/PF 5,000 UNIT/0.5 ML SYRINGE SQ SCH ×2 (07:50→18:34)
[2021-05-27] MEDS: THIAMINE 100 MG TAB PO SCH ×2 (07:50→18:30)
[2021-05-27] MEDS: MULTIVITAMINS, THERA 1 EACH TAB PO SCH (07:50)
[2021-05-27] MEDS: FOLIC ACID 1 MG TAB PO SCH (07:50)
[2021-05-27 11:44] LABS: HCT 38.1 % (39.6-50.0); HGB 12.3 g/dL (13.0-17.0); MCH 31.4 pg (27.0-32.0); MCHC 32.3 g/dL (32.0-37.0); MCV 97.2 fL (80.0-97.0); Mean Platelet Volume 9.6 fL (9.5-12.2); Platelet Count 294 X 10*3/uL (140-440); RBC 3.92 X 10*6/uL (4.40-5.60); RDW 13.2 % (11.5-14.5); WBC 9.51 X 10*3/uL (4.50-10.00)
[2021-05-27 13:01] LABS: African American GFR (CKD) 152.8 (60.0-200.0); Albumin 3.1 g/dL (3.8-4.9); Albumin/Globulin Ratio 1.47 (1.60-3.17); Anion Gap 13.9 mmol/L (10.00-18.00); BUN/Creat Ratio 13.16 Ratio (12.00-20.00); Blood Urea Nitrogen 7.4 mg/dL (9.0-27.0); Calcium 8.7 mg/dL (8.7-10.3); Carbon Dioxide 16.8 mmol/L (20.0-27.5); Globulin 2.1 g/dL (1.6-3.3); Non-African American GFR(CKD) 131.9 (60.0-200.0); Potassium 4.2 mmol/L (3.5-5.5); Total Bilirubin 4.8 mg/dL (0.30-1.20); Total Protein 5.2 g/dL (6.2-8.2)
--- NOTE | 2021-05-27 13:17 | P.PN ---
Subjective Progress Note Date: 05/27/21 Principal diagnosis: pancreatitis Patient has less abdominal pain today compared to yesterday. No nausea or vomiting. No fevers. Objective - Vital Signs Vital signs: Vital Signs Temp 97.7 F 05/27/21 07:00 Pulse 102 H 05/27/21 07:00 Resp 16 05/27/21 07:54 BP 153/88 05/27/21 07:00 Pulse Ox 98 05/27/21 07:00 Intake & Output 05/26/21 05/27/21 05/27/21 18:59 06:59 18:59 Intake Total 540 Output Total 1 Balance 540 -1 Weight 61.235 kg Intake: Oral 540 Output: Urine 1 Other: Voiding Method Toilet Toilet # Voids 3 1 # Bowel Movements 1 - Exam Constitutional: No acute distress, conversant, pleasant Eyes:Anicteric sclerae, moist conjunctiva, no lid-lag, PERRLA, ENMT: Oropharynx clear, no erythema, exudates Neck: Supple, FROM, no masses, or JVD, No carotid bruits, No thyromegaly Lungs: Clear to auscultation, Clear to percussion, Normal respiratory effort, no accessory muscle use Cardiovascular: Heart regular in rate and rhythm, No murmurs, gallops, or rubs, No peripheral edema Abdominal: Soft, severe epigastric tenderness, + voluntary guarding, no rebound or rigidity, Normoactive bowel sounds, No hepatomegaly, No splenomegaly, No palpable mass Skin: Normal temperature, tone, texture, turgor, no induration, No subcutaneous nodules, No rash, lesions, No ulcers Extremities: No digital cyanosis, No clubbing, Pedal pulses intact and symmetrical, Radial pulses intact and symmetrical, No calf tenderness Psychiatric: Alert and oriented to person, place and time, appropriate affect, intact judgement Neuro: Muscles Strength 5/5 in all 4 extremities, Sensation to light touch tatianna ssly present throughout, Cranial nerves II-XII grossly intact, no focal sensory deficits - Labs CBC & Chem 7: 05/27/21 06:43 05/27/21 06:43 Labs: Abnormal Lab Results - Last 24 Hours (Table) 05/27/21 05/27/21 Range/Units 06:43 06:43 RBC 3.92 L (4.40-5.60) X 10*6/uL Hgb 12.3 L (13.0-17.0) g/dL Hct 38.1 L (39.6-50.0) % MCV 97.2 H (80.0-97.0) fL Carbon Dioxide 16.8 L (20.0-27.5) mmol/L BUN 7.4 L (9.0-27.0) mg/dL Total Bilirubin 4.80 H (0.30-1.20) mg/dL AST 223 H (14-35) U/L ALT 141 H (10-49) U/L Alkaline Phosphatase 397 H (41-126) U/L Total Protein 5.2 L (6.2-8.2) g/dL Albumin 3.1 L (3.8-4.9) g/dL Albumin/Globulin Ratio 1.47 L (1.60-3.17) g/dL Lipase 147 H (14-60) U/L Assessment and Plan Plan: Severe acute pancreatitis on chronic pancreatitis, secondary to alcoholic pancre atitis Acutely elevated liver enzymes, CT revealing concerns of pancreatic ductal and biliary dilation concerning for obstruction at duodenal ampulla -Gen. surgery following, recommended transfer to tertiary facility. No accepting facilities at this time due to covid. -Continue with generous IV hydration -Safe and supportive care, Zofran as needed for nausea/vomiting, morphine as needed for pain management. -Lipase improved but LFTs plateauted, will check MRCP -Repeat labs in am -NPO Alcohol use/abuse -[facility] Protocol with symptom triggered medication management with benzodiazepines. -Continuous IV hydration. -Thiamine 100 mg twice a day -Multivitamin daily -Folate 1 mg daily -Seizure, fall, aspiration, and elopement precautions in place. -Urine drug screen -Continued close monitoring of electrolytes and replace as needed. -Telemetry monitoring. Leukocytosis is believed to be reactive, resolved CODE STATUS: Full code DVT prophylaxis: Heparin Discussed with: Patient and RN Anticipated discharge date: Clinical course to determine Anticipated discharge place: Home A total of 45 minutes was spent on the care of this complex patient more than 50% of the time was spent in counseling and care coordination.
--- NOTE | 2021-05-27 14:51 | P.PN ---
Subjective Progress Note Date: 05/27/21 Principal diagnosis: Pancreatitis The 5-year-old male with a history of alcoholic pancreatitis first diagnosed approximately 3 years ago. Patient states he is likely about his pounds 5on fifth episode of pancreatitis and has been hospitalized in the past. He presented to the emergency department on 2 days ago with severe abdominal pain with no associated nausea or vomiting. He had a CT of the abdomen that showed severe inflammation of the pancreas with no evidence of pseudocyst. There was pancreatic ductal and biliary dilation with nonvisualization of both structures near the 2-lead left. There may be a reactive inflammatory change causing significant narrowing or occlusion of both structures. Recommendation for transfer to tertiary center yesterday however both [facility] and [facility] did not accept transfer and recommend medical management. Patient does state he is feeling a little bit better today. Denies any nausea or vomiting. He has been on aggressive hydration. And pain is controlled with medication. Repeat labs today WBC 9.5 hemoglobin 12 platelet count 294,000 total bilirubin 4.8 AST 223 ALT 141 alkaline phosphatase 397, lipase 147. Objective - Vital Signs Vital signs: Vital Signs Temp 97.7 F 05/27/21 07:00 Pulse 102 H 05/27/21 07:00 Resp 16 05/27/21 07:54 BP 153/88 05/27/21 07:00 Pulse Ox 98 05/27/21 07:00 Intake & Output 05/26/21 05/27/21 05/27/21 18:59 06:59 18:59 Intake Total 540 Output Total 1 Balance 540 -1 Weight 61.235 kg Intake: Oral 540 Output: Urine 1 Other: Voiding Method Toilet Toilet # Voids 3 1 # Bowel Movements 1 - Exam General appearance: The patient is alert, oriented, appears in no acute distress. HET: Head is normocephalic and atraumatic. Conjunctiva pink. Sclera anicteric. Neck: Supple without lymphadenopathy. Abdomen: Soft, very tender to palpation right upper quadrant, mid abdomen and epigastric region, nondistended with bowel sounds. No guarding or rigidity. Extremities: Normal skin color and turgor. No pedal edema Skin: No rashes, no jaundice Neurological: No focal deficits. Alert and oriented x 3. - Labs CBC & Chem 7: 05/27/21 06:43 05/27/21 06:43 Labs: Abnormal Lab Results - Last 24 Hours (Table) 05/27/21 05/27/21 Range/Units 06:43 06:43 RBC 3.92 L (4.40-5.60) X 10*6/uL Hgb 12.3 L (13.0-17.0) g/dL Hct 38.1 L (39.6-50.0) % MCV 97.2 H (80.0-97.0) fL Carbon Dioxide 16.8 L (20.0-27.5) mmol/L BUN 7.4 L (9.0-27.0) mg/dL Total Bilirubin 4.80 H (0.30-1.20) mg/dL AST 223 H (14-35) U/L ALT 141 H (10-49) U/L Alkaline Phosphatase 397 H (41-126) U/L Total Protein 5.2 L (6.2-8.2) g/dL Albumin 3.1 L (3.8-4.9) g/dL Albumin/Globulin Ratio 1.47 L (1.60-3.17) g/dL Lipase 147 H (14-60) U/L Assessment and Plan (1) Acute pancreatitis Narrative/Plan: 35-year-old male with a history of alcoholic pancreatitis. First episode approximately 3 years ago with 5-6 sterilization's. His last hospitalization was approximately one year ago. Patient has a history of significant alcohol abuse for several years and was daily drinker of at least a pint a day. Approximately 6 months ago he states he cut back to about 2 days a week. He had his last drink on and this past Sunday started having abdominal pain. States pain has progressively gotten worse and is the worse it has ever been. He has no associated nausea or vomiting. He does have a decreased appet ite. On admission he had no elevation in his LFTs with a lipase of 3000. Repeat labs today show elevation in his bilirubin AST and ALT with decrease in his lipase. There was no initial imaging so a CT of the abdomen and pelvis was ordered showing severe acute pancreatitis on chronic pancreatitis. There is no concern for a fluid-filled collection however there is significant inflammation as well as pancreatic ductal and biliary dilation with nonvisualization of both structures near the duodenal ampulla. The findings were called to by Dr. Vidal who was concerned of the severity of his pancreatitis. This was discussed with the patient for possible transfer to tertiary center for further evaluation and treatment. Current Visit: No Status: Acute Code(s): K85.90 - ACUTE PANCREATITIS WITHOUT NECROSIS OR INFECTION, UNSP SNOMED Code(s): 332993764 Plan: 1. Continue symptomatic and supportive care 2. Aggressive IV hydration 3. Protonix 40 mg twice a day 4. Continue pain management 5. May advance to ice chips and popsicles Thank you for allowing us to participate in the care of the patient, the GI service will sign off, gastroenterology will not be available at the hospital this weekend. If further evaluation by gastroenterology is required the patient will need transfer as per the primary team's discretion. Dr. Nena Rodriguez I agree with the dictator's note, documented as a scribe by Bita Pineda.
--- NOTE | 2021-05-27 18:49 | MR ---
EXAMINATION TYPE: MR MRCP DATE OF EXAM: 05/27/2021 COMPARISON: None HISTORY: Pancreatic mass? abdomen pain. Multiplanar multi echo imaging of the abdomen without contrast. There are MRCP images. There is diffuse enlargement of the entire pancreas. Pancreatic head shows massive enlargement and me asures 8.5 cm. There is irregular dilation of the pancreatic duct. Distal duct measures [address] There is rounded low signal focus in the distal duct that measures 4 mm and could BE obstructing calculus. There is mild dilation of the distal common bile duct which measures 11 mm. No filling def ects seen. There is no significant dilation of the intrahepatic bile ducts. Gallbladder measures 4 cm in diameter. No evidence of gallbladder mass. There is no adrenal mass. Kidneys have normal size and contour. There is no hydronephrosis. Spleen is intact. The stomach appears intact. There is mild abdominal ascites fluid. IMPRESSION: Massive heterogeneous enlargement of the entire pancreas. Dilated pancreatic duct and possible calcul us in the distal pancreatic duct. Mildly dilated common bile duct. No significant dilation of the intrahepatic bile ducts. This could r elate to some gallbladder dysfunction. Appearance of the pancreas could be due to acute pancreatitis. Neoplastic process not excluded. I do not suspect a tumor in view of the diffuse nature of the pancreatic abnormality.
[2021-05-28] MEDS: HEPARIN SODIUM,PORCINE/PF 5,000 UNIT/0.5 ML SYRINGE SQ SCH ×3 (00:30→17:02)
[2021-05-28] MEDS: MORPHINE SULFATE 4 MG/ML SYRINGE IV PRN ×7 (00:48→20:48)
[2021-05-28] MEDS: SODIUM CHLORIDE 0.9% 1,000 ML IV SCH ×6 (00:51→20:51)
[2021-05-28] MEDS: FOLIC ACID 1 MG TAB PO SCH (08:08)
[2021-05-28] MEDS: PANTOPRAZOLE 40 MG/10 ML VIAL IVP SCH ×2 (08:08→19:37)
[2021-05-28] MEDS: MULTIVITAMINS, THERA 1 EACH TAB PO SCH (08:08)
[2021-05-28] MEDS: THIAMINE 100 MG TAB PO SCH ×2 (08:08→17:02)
[2021-05-28 11:33] LABS: Basophils # (A) 0.05 X 10*3/uL (0.00-0.10); Basophils % (A) 0.6 %; Eosinophils # (A) 0.23 X 10*3/uL (0.04-0.35); Eosinophils % (A) 2.8 %; HCT 37.6 % (39.6-50.0); HGB 12.4 g/dL (13.0-17.0); Lymphocytes # (A) 1.51 X 10*3/uL (0.90-5.00); Lymphocytes % (A) 18.5 %; MCH 31.5 pg (27.0-32.0); MCV 95.4 fL (80.0-97.0); Mean Platelet Volume 9.6 fL (9.5-12.2); Monocytes # (A) 0.64 X 10*3/uL (0.20-1.00); Monocytes % (A) 7.9 %; Neutrophils # (A) 5.68 X 10*3/uL (1.80-7.70); Neutrophils % (A) 69.7 %; Platelet Count 289 X 10*3/uL (140-440); RBC 3.94 X 10*6/uL (4.40-5.60); RDW 13.2 % (11.5-14.5); WBC 8.15 X 10*3/uL (4.50-10.00)
--- NOTE | 2021-05-28 11:38 | P.PN ---
Subjective Progress Note Date: 05/28/21 Principal diagnosis: pancreatitis Still having epigastric pain but better today. Still NPO. Feeling hungry. No fevers or chills. No nausea or vomiting. Objective - Vital Signs Vital signs: Vital Signs Temp 98.0 F 05/28/21 07:39 Pulse 91 05/28/21 07:39 Resp 18 05/28/21 08:00 BP 144/98 05/28/21 07:39 Pulse Ox 99 05/28/21 07:39 Intake & Output 05/27/21 05/28/21 05/28/21 18:59 06:59 18:59 Other: Voiding Method Toilet Toilet Toilet # Voids 3 1 - Exam Constitutional: No acute distress, conversant, pleasant Eyes:Anicteric sclerae, moist conjunctiva, no lid-lag, PERRLA, ENMT: Oropharynx clear, no erythema, exudates Neck: Supple, FROM, no masses, or JVD, No carotid bruits, No thyromegaly Lungs: Clear to auscultation, Clear to percussion, Normal respiratory effort, no accessory muscle use Cardiovascular: Heart regular in rate and rhythm, No murmurs, gallops, or rubs, No peripheral edema Abdominal: Soft, severe epigastric tenderness, + voluntary guarding, no rebound or rigidity, Normoactive bowel sounds, No hepatomegaly, No splenomegaly, No palpable mass Skin: Normal temperature, tone, texture, turgor, no induration, No subcutaneous nodules, No rash, lesions, No ulcers Extremities: No digital cyanosis, No clubbing, Pedal pulses intact and symmetrical, Radial pulses intact and symmetrical, No calf tenderness Psychiatric: Alert and oriented to person, place and time, appropriate affect, intact judgement Neuro: Muscles Strength 5/5 in all 4 extremities, Sensation to light touch grossly present throughout, Cranial nerves II-XII grossly intact, no focal sensory deficits - Labs CBC & Chem 7: 05/28/21 06:51 05/27/21 06:43 Labs: Abnormal Lab Results - Last 24 Hours (Table) 05/27/21 05/27/21 05/28/21 Range/Units 06:43 06:43 06:51 RBC 3.92 L 3.94 L (4.40-5.60) X 10*6/uL Hgb 12.3 L 12.4 L (13.0-17.0) g/dL Hct 38.1 L 37.6 L (39.6-50.0) % MCV 97.2 H (80.0-97.0) fL Carbon Dioxide 16.8 L (20.0-27.5) mmol/L BUN 7.4 L (9.0-27.0) mg/dL Total Bilirubin 4.80 H (0.30-1.20) mg/dL AST 223 H (14-35) U/L ALT 141 H (10-49) U/L Alkaline Phosphatase 397 H (41-126) U/L Total Protein 5.2 L (6.2-8.2) g/dL Albumin 3.1 L (3.8-4.9) g/dL Albumin/Globulin Ratio 1.47 L (1.60-3.17) g/dL Lipase 147 H (14-60) U/L Assessment and Plan Plan: Severe acute pancreatitis on chronic pancreatitis, secondary to alcoholic pancreatitis Acutely elevated liver enzymes, CT revealing concerns of pancreatic ductal and biliary dilation concerning for obstruction at duodenal ampulla -Gen. surgery following, recommended transfer to tertiary facility. No accepting facilities at this time due to covid. -Continue with generous IV hydration -Safe and supportive care, Zofran as needed for nausea/vomiting, morphine as needed for pain management. -MRCP showing severe pancreatitis but no gallstones or biliary ductal dilation. -Repeat labs in am -Start clears. Alcohol use/abuse -[facility] Protocol with symptom triggered medication management with benzodiazepines. -Continuous IV hydration. -Thiamine 100 mg twice a day -Multivitamin daily -Folate 1 mg daily -Seizure, fall, aspiration, and elopement precautions in place. -Continued close monitoring of electrolytes and replace as needed. -Telemetry monitoring. Leukocytosis -Likely reactive, resolved CODE STATUS: Full code DVT prophylaxis: Heparin Discussed with: Patient and RN Anticipated discharge date: Clinical course to determine Anticipated discharge place: Home A total of 45 minutes was spent on the care of this complex patient more than 50% of the time was spent in counseling and care coordination.
[2021-05-28 12:00] LABS: Magnesium 1.6 mg/dL (1.5-2.4)
[2021-05-28 12:12] LABS: Albumin/Globulin Ratio 1.38 (1.60-3.17); Anion Gap 14.7 mmol/L (10.00-18.00); BUN/Creat Ratio 4.5 Ratio (12.00-20.00); Blood Urea Nitrogen 2.1 mg/dL (9.0-27.0); Calcium 8.7 mg/dL (8.7-10.3); Carbon Dioxide 18.9 mmol/L (20.0-27.5); Globulin 2.2 g/dL (1.6-3.3); Non-African American GFR(CKD) 143.3 (60.0-200.0); Potassium 3.8 mmol/L (3.5-5.5); Total Protein 5.2 g/dL (6.2-8.2)
[2021-05-29] MEDS: MORPHINE SULFATE 4 MG/ML SYRINGE IV PRN ×8 (00:12→23:54)
[2021-05-29] MEDS: HEPARIN SODIUM,PORCINE/PF 5,000 UNIT/0.5 ML SYRINGE SQ SCH ×4 (00:13→23:54)
[2021-05-29] MEDS: SODIUM CHLORIDE 0.9% 1,000 ML IV SCH ×5 (01:48→23:56)
[2021-05-29] MEDS: THIAMINE 100 MG TAB PO SCH ×2 (07:00→15:43)
[2021-05-29] MEDS: PANTOPRAZOLE 40 MG/10 ML VIAL IVP SCH ×2 (07:00→20:35)
[2021-05-29] MEDS: FOLIC ACID 1 MG TAB PO SCH (07:01)
[2021-05-29] MEDS: MULTIVITAMINS, THERA 1 EACH TAB PO SCH (07:02)
--- NOTE | 2021-05-29 08:29 | P.PN ---
Subjective Progress Note Date: 05/29/21 Principal diagnosis: pancreatitis Patient tolerated clear liquid diet, continues to have epigastric pain daniella with moving however that is better now according to patient. No fevers Objective - Vital Signs Vital signs: Vital Signs Temp 97.5 F L 05/29/21 07:24 Pulse 72 05/29/21 07:24 Resp 18 05/29/21 07:24 BP 153/93 05/29/21 07:24 Pulse Ox 99 05/29/21 07:24 Intake & Output 05/28/21 05/29/21 05/29/21 18:59 06:59 18:59 Intake Total 296 Balance 296 Intake: Oral 296 Other: Voiding Method Toilet Toilet Toilet # Voids 1 - Exam Constitutional: No acute distress, conversant, pleasant Eyes:Anicteric sclerae, moist conjunctiva, no lid-lag, PERRLA, ENMT: Oropharynx clear, no erythema, exudates Neck: Supple, FROM, no masses, or JVD, No carotid bruits, No thyromegaly Lungs: Clear to auscultation, Clear to percussion, Normal respiratory effort, no accessory muscle use Cardiovascular: Heart regular in rate and rhythm, No murmurs, gallops, or rubs, No peripheral edema Abdominal: Soft, severe epigastric tenderness, + voluntary guarding, no rebound or rigidity, Normoactive bowel sounds, No hepatomegaly, No splenomegaly, No palpable mass Skin: Normal temperature, tone, texture, turgor, no induration, No subcutaneous nodules, No rash, lesions, No ulcers Extremities: No digital cyanosis, No clubbing, Pedal pulses intact and symmetrical, Radial pulses intact and symmetrical, No calf tenderness Psychiatric: Alert and oriented to person, place and time, appropriate affect, intact judgement Neuro: Muscles Strength 5/5 in all 4 extremities, Sensation to light touch grossly present throughout, Cranial nerves II-XII grossly intact, no focal sensory deficits - Labs CBC & Chem 7: 05/28/21 06:51 05/28/21 06:51 Labs: Abnormal Lab Results - Last 24 Hours (Table) 05/28/21 05/28/21 Range/Units 06:51 06:51 RBC 3.94 L (4.40-5.60) X 10*6/uL Hgb 12.4 L (13.0-17.0) g/dL Hct 37.6 L (39.6-50.0) % Carbon Dioxide 18.9 L (20.0-27.5) mmol/L BUN 2.1 L (9.0-27.0) mg/dL Creatinine 0.5 L (0.6-1.5) mg/dL BUN/Creatinine Ratio 4.50 L (12.00-20.00) Ratio Total Bilirubin 4.00 H (0.30-1.20) mg/dL AST 142 H (14-35) U/L ALT 113 H (10-49) U/L Alkaline Phosphatase 440 H (41-126) U/L Total Protein 5.2 L (6.2-8.2) g/dL Albumin 3.0 L (3.8-4.9) g/dL Albumin/Globulin Ratio 1.38 L (1.60-3.17) g/dL Lipase 103 H (14-60) U/L Assessment and Plan Plan: Severe acute pancreatitis on chronic pancreatitis, secondary to alcoholic pancreatitis Acutely elevated liver enzymes, CT revealing concerns of pancreatic ductal and biliary dilation concerning for obstruction at duodenal ampulla -Gen. surgery following, recommended transfer to tertiary facility. No accepting facilities at this time due to covid. -Continue with generous IV hydration -Safe and supportive care, Zofran as needed for nausea/vomiting, morphine as needed for pain management. -MRCP showing severe pancreatitis with pancreatic ductal dilation but no gallstones or biliary ductal dilation. -Repeat labs in am -Continue clears. Alcohol use/abuse -[facility] Protocol with symptom triggered medication management with b enzodiazepines. -Continuous IV hydration. -Thiamine 100 mg twice a day -Multivitamin daily -Folate 1 mg daily -Seizure, fall, aspiration, and elopement precautions in place. -Continued close monitoring of electrolytes and replace as needed. -Telemetry monitoring. Leukocytosis -Likely reactive, resolved Tried on 05/28 to tx patient to [facility] but both declined the transfer due to their bed situation, will try [facility] today. CODE STATUS: Full code DVT prophylaxis: Heparin Discussed with: Patient and RN Anticipated discharge date: Clinical course to determine Anticipated discharge place: Home A total of 45 minutes was spent on the care of this complex patient more than 50% of the time was spent in counseling and care coordination.
[2021-05-29 11:01] LABS: Basophils # (A) 0.05 X 10*3/uL (0.00-0.10); Basophils % (A) 0.6 %; Eosinophils # (A) 0.21 X 10*3/uL (0.04-0.35); Eosinophils % (A) 2.5 %; HCT 37.8 % (39.6-50.0); HGB 12.2 g/dL (13.0-17.0); Lymphocytes # (A) 1.37 X 10*3/uL (0.90-5.00); Lymphocytes % (A) 16.3 %; MCH 30.6 pg (27.0-32.0); MCHC 32.3 g/dL (32.0-37.0); MCV 94.7 fL (80.0-97.0); Mean Platelet Volume 9.9 fL (9.5-12.2); Monocytes # (A) 0.67 X 10*3/uL (0.20-1.00); Monocytes % (A) 7.9 %; Neutrophils % (A) 72.3 %; Platelet Count 320 X 10*3/uL (140-440); RBC 3.99 X 10*6/uL (4.40-5.60); RDW 13.3 % (11.5-14.5); WBC 8.43 X 10*3/uL (4.50-10.00)
[2021-05-29 11:25] LABS: Lipase 113 U/L (14-60); Magnesium 1.5 mg/dL (1.5-2.4); Phosphorus 2.8 mg/dL (2.4-5.1)
[2021-05-29 11:27] LABS: ALT 101 U/L (10-49); AST 107 U/L (14-35); African American GFR (CKD) 164.4 (60.0-200.0); Albumin/Globulin Ratio 1.34 (1.60-3.17); Alkaline Phosphatase 477 U/L (41-126); Blood Urea Nitrogen <2 mg/dL (9.0-27.0); Calcium 8.7 mg/dL (8.7-10.3); Carbon Dioxide 22.7 mmol/L (20.0-27.5); Chloride 103 mmol/L (96-109); Globulin 2.3 g/dL (1.6-3.3); Glucose 113 mg/dL (70-110); Non-African American GFR(CKD) 141.9 (60.0-200.0); Potassium 3.4 mmol/L (3.5-5.5); Sodium 138 mmol/L (135-145); Total Protein 5.3 g/dL (6.2-8.2)
[2021-05-29] MEDS ORDERED: POTASSIUM CHLORIDE 10 MEQ in WATER FOR INJECTION 1 100ML.BAG IVPB STA (14:04)
--- NOTE | 2021-05-29 15:55 | CT ---
EXAMINATION TYPE: CT abdomen pelvis w con DATE OF EXAM: 05/29/2021 COMPARISON: 05/26/2021 HISTORY: Mid abdominal pain. Pancreatitis. CT DLP: 748 mGycm Automated exposure control for dose reduction was used. CONTRAST: Performed with IV Contrast, patient injected with 100 mL of Isovue 300. Images obtained from the diaphragm to the floor the pelvis with IV contrast Isovue 100 mL. FINDINGS: There is some patchy atelectasis at the lung bases. Heart size is normal. There is no pericardial eff usion. There is small amount of fluid around the gallbladder. Liver is intact. Spleen is intact. Stom ach is intact. There is diffuse edema around the entire pancreas. There is retroperitoneal fluid accu mulation in the anterior pararenal space measuring up to 1 cm in thickness. There is edema around the proximal duodenum. There is wall thickening of the proximal duodenum. There is no adrenal mass. Kidneys show satisfactory contrast opacification. There is no hydronephrosi s. Ureters are not dilated. There is no retroperitoneal adenopathy. There is mild low-density free fl uid in the pelvis. Bladder is mildly dilated and measures 17 cm. There is no evidence of a bowel obst ruction. There is no free air. Bony structures are intact. IMPRESSION: Extensive edema around the pancreas consistent with pancreatitis without significant change. There is retroperitoneal fluid unchanged. There is mild abdominal ascites fluid accumulation in the abdomen w hich is more in the pelvis and less in paraColic gutters compared to old exam. There is duodenal wall thickening consistent with edema which is similar to old exam. Patchy atelectasis at the lung bases slightly increased compared to old exam.
[2021-05-30] MEDS: MORPHINE SULFATE 4 MG/ML SYRINGE IV PRN ×6 (02:56→21:16)
[2021-05-30] MEDS: SODIUM CHLORIDE 0.9% 1,000 ML IV SCH ×3 (05:37→15:06)
[2021-05-30] MEDS: HEPARIN SODIUM,PORCINE/PF 5,000 UNIT/0.5 ML SYRINGE SQ SCH ×3 (09:26→23:25)
[2021-05-30] MEDS: MULTIVITAMINS, THERA 1 EACH TAB PO SCH (09:27)
[2021-05-30] MEDS: THIAMINE 100 MG TAB PO SCH ×2 (09:27→17:27)
[2021-05-30] MEDS: PANTOPRAZOLE 40 MG/10 ML VIAL IVP SCH ×2 (09:27→20:00)
[2021-05-30] MEDS: FOLIC ACID 1 MG TAB PO SCH (09:27)
[2021-05-30 09:44] LABS: Basophils # (A) 0.06 X 10*3/uL (0.00-0.10); Basophils % (A) 0.8 %; Eosinophils # (A) 0.25 X 10*3/uL (0.04-0.35); Eosinophils % (A) 3.3 %; HCT 35.6 % (39.6-50.0); HGB 11.8 g/dL (13.0-17.0); Lymphocytes # (A) 2.04 X 10*3/uL (0.90-5.00); MCH 30.9 pg (27.0-32.0); MCHC 33.1 g/dL (32.0-37.0); MCV 93.2 fL (80.0-97.0); Monocytes # (A) 0.74 X 10*3/uL (0.20-1.00); Monocytes % (A) 9.8 %; Neutrophils # (A) 4.43 X 10*3/uL (1.80-7.70); Neutrophils % (A) 58.6 %; Platelet Count 303 X 10*3/uL (140-440); RBC 3.82 X 10*6/uL (4.40-5.60); RDW 13.9 % (11.5-14.5); WBC 7.56 X 10*3/uL (4.50-10.00)
[2021-05-30 09:58] LABS: Lipase 65 U/L (14-60); Magnesium 1.7 mg/dL (1.5-2.4); Phosphorus 3.6 mg/dL (2.4-5.1)
[2021-05-30 10:21] LABS: ALT 90 U/L (10-49); AST 90 U/L (14-35); African American GFR (CKD) 160.5 (60.0-200.0); Albumin/Globulin Ratio 1.36 (1.60-3.17); Alkaline Phosphatase 483 U/L (41-126); Blood Urea Nitrogen <2 mg/dL (9.0-27.0); Calcium 8.9 mg/dL (8.7-10.3); Carbon Dioxide 26.4 mmol/L (20.0-27.5); Chloride 103 mmol/L (96-109); Globulin 2.2 g/dL (1.6-3.3); Glucose 99 mg/dL (70-110); Non-African American GFR(CKD) 138.4 (60.0-200.0); Potassium 3.8 mmol/L (3.5-5.5); Sodium 138 mmol/L (135-145); Total Protein 5.2 g/dL (6.2-8.2)
--- NOTE | 2021-05-30 12:53 | P.PN ---
Subjective Progress Note Date: 05/30/21 Principal diagnosis: Pancreatitis This is a 35-year-old male with a history of alcoholic pancreatitis first diagnosed approximately 3 years ago. Patient states he is likely about his pounds 5on fifth episode of pancreatitis and has been hospitalized in the past. He presented to the emergency department on 2 days ago with severe abdominal pain with no associated nausea or vomiting. He had a CT of the abdomen that showed severe inflammation of the pancreas with no evidence of pseudocyst. There was pancreatic ductal and biliary dilation with nonvisualization of both structures near the 2-lead left. There may be a reactive inflammatory change causing significant narrowing or occlusion of both structures. Patient is seen today in follow-up. Last Sunday the patient underwent an MRCP that showed massive heterogeneous enlargement of the entire pancreas. Dilated pancreatic duct and possible calculus in the distal pancreatic duct. Mildly dilated common bile duct. No significant dilation of the intrahepatic bile ducts. His could relate to some gallbladder dysfunction. Appearance of pancreas could be due to acute pancreatitis. Neoplastic process not excluded. However not suspected to have a tumor in view of the diffuse nature of the pancreatic abnormality. Also states yesterday he had an episode of increased abdominal pain so they repeated a CT of the abdomen and pelvis again showing extensive edema around the pancreas consistent with pancreatitis without significant change. to a no wall thickening consistent with edema which is similar to old exam. He states his pain is better than yesterday. He denies any nausea or vomiting. He's been tolerating a clear liquid diet and would like to advance. On today's labs WBC 7.5 hemoglobin 11.8 hematocrit 35 platelet count 303,000 total bilirubin 4.0 AST 90 ALT 90 alkaline phosphatase 483 lipase 65 Objective - Vital Signs Vital signs: Vital Signs Temp 97.5 F L 05/30/21 08:00 Pulse 66 05/30/21 08:00 Resp 16 05/30/21 08:00 BP 146/85 05/30/21 08:00 Pulse Ox 97 05/30/21 08:00 Intake & Output 05/29/21 05/30/21 05/30/21 18:59 06:59 18:59 Intake Total 598 240 Balance 598 240 Intake: Oral 598 240 Other: Voiding Method Toilet Toilet # Voids 3 3 # Bowel Movements 0 - Exam General appearance: The patient is alert, oriented, appears in no acute distress. HET: Head is normocephalic and atraumatic. Conjunctiva pink. Sclera anicteric. Neck: Supple without lymphadenopathy. Abdomen: Soft, diffuse tenderness to palpation, mid abdomen and epigastric region, nondistended with bowel sounds. No guarding or rigidity. Extremities: Normal skin color and turgor. No pedal edema Skin: No rashes, no jaundice Neurological: No focal deficits. Alert and oriented x 3. - Labs CBC & Chem 7: 05/30/21 06:16 05/30/21 06:16 Labs: Abnormal Lab Results - Last 24 Hours (Table) 05/29/21 05/29/21 Range/Units 07:54 07:54 RBC 3.99 L (4.40-5.60) X 10*6/uL Hgb 12.2 L (13.0-17.0) g/dL Hct 37.8 L (39.6-50.0) % Potassium 3.4 L (3.5-5.5) mmol/L Creatinine 0.5 L (0.6-1.5) mg/dL Glucose 113 H (70-110) mg/dL Total Bilirubin 3.70 H (0.30-1.20) mg/dL AST 107 H (14-35) U/L ALT 101 H (10-49) U/L Alkaline Phosphatase 477 H (41-126) U/L Total Protein 5.3 L (6.2-8.2) g/dL Albumin 3.0 L (3.8-4.9) g/dL Albumin/Globulin Ratio 1.34 L (1.60-3.17) g/dL Lipase 113 H (14-60) U/L Assessment and Plan (1) Acute pancreatitis Narrative/Plan: 35-year-old male with a history of alcoholic pancreatitis. First episode approximately 3 years ago with 5-6 sterilization's. His last hospitalization was approximately one year ago. Patient has a history of significant alcohol abuse for several years and was daily drinker of at least a pint a day. A pproximately 6 months ago he states he cut back to about 2 days a week. He had his last drink on alyse and this past Sunday started having abdominal pain. States pain has progressively gotten worse and is the worse it has ever been. He has no associated nausea or vomiting. He does have a decreased appetite. On admission he had no elevation in his LFTs with a lipase of 3000. Repeat labs today show elevation in his bilirubin AST and ALT with decrease in his lipase. There was no initial imaging so a CT of the abdomen and pelvis was ordered showing severe acute pancreatitis on chronic pancreatitis. There is no concern for a fluid-filled collection however there is significant inflammation as well as pancreatic ductal and biliary dilation with nonvisualization of both structures near the duodenal ampulla. The findings were called to by Dr. Vidal who was concerned of the severity of his pancreatitis. This was discussed with the patient for possible transfer to tertiary center for further evaluation and treatment, however there were no excepting hospitals due to over capacity. Patient continues to improve in his symptoms. Continue to treat symptomatically and supportively. Repeat imaging without any significant change. Current Visit: No Status: Acute Code(s): K85.90 - ACUTE PANCREATITIS WITHOUT NECROSIS OR INFECTION, UNSP SNOMED Code(s): 985134485 Plan: 1. Continue symptomatic and supportive care 2. May advance to full liquid diet 3. Protonix 40 mg twice a day 4. Continue pain management 5. Encouraged ambulation 6. Alcohol abstinence Thank you for this consultation, we will continue to follow. Dr. Nena Rodriguez I agree with the dictator's note, documented as a scribe by Bita Pineda.
[2021-05-30] MEDS: LACTATED RINGERS 1,000 ML IV SCH ×2 (13:00→18:07)
--- NOTE | 2021-05-30 17:51 | P.PN ---
Subjective Progress Note Date: 05/30/21 Principal diagnosis: Pancreatitis Patient examined at bedside today not complaining of any new symptoms. Does continue to complain of abdominal discomfort currently awaiting an 8 out of 10. Case discussed with RN present at bedside. We have advanced his diet to full liquid diet we will continue to monitor closely. Objective - Vital Signs Vital signs: Vital Signs Temp 98.3 F 05/30/21 13:05 Pulse 73 05/30/21 13:05 Resp 15 05/30/21 13:05 BP 150/94 05/30/21 13:05 Pulse Ox 98 05/30/21 13:05 Intake & Output 05/29/21 05/30/21 05/30/21 18:59 06:59 18:59 Intake Total 598 240 280 Balance 598 240 280 Intake: Oral 598 240 280 Other: Voiding Method Toilet Toilet # Voids 3 3 # Bowel Movements 0 - Exam Constitutional: No acute distress, conversant, pleasant Eyes:Anicteric sclerae, moist conjunctiva, no lid-lag, PERRLA, ENMT: Oropharynx clear, no erythema, exudates Neck: Supple, FROM, no masses, or JVD, No carotid bruits, No thyromegaly Lungs: Clear to auscultation, Clear to percussion, Normal respiratory effort, no accessory muscle use Cardiovascular: Heart regular in rate and rhythm, No murmurs, gallops, or rubs, No peripheral edema Abdominal: Mild abdominal discomfort noted on palpation. - Labs CBC & Chem 7: 05/30/21 06:16 05/30/21 06:16 Labs: Abnormal Lab Results - Last 24 Hours (Table) 05/30/21 05/30/21 Range/Units 06:16 06:16 RBC 3.82 L (4.40-5.60) X 10*6/uL Hgb 11.8 L (13.0-17.0) g/dL Hct 35.6 L (39.6-50.0) % Anion Gap 8.60 L (10.00-18.00) mmol/L Creatinine 0.5 L (0.6-1.5) mg/dL Total Bilirubin 4.00 H (0.30-1.20) mg/dL AST 90 H (14-35) U/L ALT 90 H (10-49) U/L Alkaline Phosphatase 483 H (41-126) U/L Total Protein 5.2 L (6.2-8.2) g/dL Albumin 3.0 L (3.8-4.9) g/dL Albumin/Globulin Ratio 1.36 L (1.60-3.17) g/dL Lipase 65 H (14-60) U/L Assessment and Plan Plan: Assessment #1 severe acute pancreatitis on chronic respiratory secondary to EtOH #2 transaminitis secondary to above #3 EtOH dependence Plan -Aspiration/fall precaution -Advance started clear liquids and monitor -Pain medication when necessary -Patient involving by gastrology -Continue with multivitamin, thiamine and folic acid -[facility] protocol -LFTs are trending down. Continue to monitor for GI DVT prophylaxis heparin
[2021-05-30] MEDS: NICOTINE 21MG/24HR PATCH TRANSDERM SCH (20:00)
[2021-05-31] MEDS: MORPHINE SULFATE 4 MG/ML SYRINGE IV PRN ×8 (00:27→23:45)
[2021-05-31] MEDS: LACTATED RINGERS 1,000 ML IV SCH ×6 (03:33→23:47)
[2021-05-31] MEDS: MULTIVITAMINS, THERA 1 EACH TAB PO SCH (07:29)
[2021-05-31] MEDS: THIAMINE 100 MG TAB PO SCH ×2 (07:29→18:09)
[2021-05-31] MEDS: PANTOPRAZOLE 40 MG/10 ML VIAL IVP SCH (07:29)
[2021-05-31] MEDS: HEPARIN SODIUM,PORCINE/PF 5,000 UNIT/0.5 ML SYRINGE SQ SCH ×3 (07:30→23:46)
[2021-05-31] MEDS: NICOTINE 21MG/24HR PATCH TRANSDERM SCH (07:30)
[2021-05-31] MEDS: FOLIC ACID 1 MG TAB PO SCH (07:30)
[2021-05-31 11:23] LABS: INR 0.95 (0.90-1.11); Prothrombin Time 10.5 sec (9.9-11.9)
[2021-05-31 12:39] LABS: Basophils % (A) 1 %; Eosinophils # (A) 0.1 k/uL (0-0.7); Eosinophils % (A) 1 %; HCT 42.4 % (39.0-53.0); Lymphocytes # (A) 1.7 k/uL (1.0-4.8); Lymphocytes % (A) 23 %; MCH 31.6 pg (25.0-35.0); MCHC 31.1 g/dL (31.0-37.0); MCV 101.7 fL (80.0-100.0); Macrocytosis Slight; Mean Platelet Volume 9.6; Monocytes # (A) 0.5 k/uL (0-1.0); Monocytes % (A) 7 %; Neutrophils % (A) 67 %; Platelet Count 306 k/uL (150-450); RBC 4.17 m/uL (4.30-5.90); RDW 13.9 % (11.5-15.5); WBC 7.5 k/uL (3.8-10.6)
[2021-05-31 12:41] LABS: HGB 13.2 gm/dL (13.0-17.5)
[2021-05-31 12:45] LABS: ALT 80 U/L (10-49); AST 71 U/L (14-35); African American GFR (CKD) 165.6 (60.0-200.0); Alkaline Phosphatase 471 U/L (41-126); Blood Urea Nitrogen <2 mg/dL (9.0-27.0); Carbon Dioxide 27.6 mmol/L (20.0-27.5); Chloride 100 mmol/L (96-109); Globulin 2.3 g/dL (1.6-3.3); Glucose 121 mg/dL (70-110); Non-African American GFR(CKD) 142.9 (60.0-200.0); Potassium 3.4 mmol/L (3.5-5.5); Sodium 138 mmol/L (135-145); Total Protein 5.4 g/dL (6.2-8.2)
--- NOTE | 2021-05-31 15:12 | P.PN ---
Subjective Progress Note Date: 05/31/21 Principal diagnosis: Pancreatitis This is a 35-year-old male with a history of alcoholic pancreatitis first diagnosed approximately 3 years ago. Patient states he is likely about his pounds 5on fifth episode of pancreatitis and has been hospitalized in the past. He presented to the emergency department on 2 days ago with severe abdominal pain with no associated nausea or vomiting. He had a CT of the abdomen that showed severe inflammation of the pancreas with no evidence of pseudocyst. There was pancreatic ductal and biliary dilation with nonvisualization of both structures near the 2-lead left. There may be a reactive inflammatory change causing significant narrowing or occlusion of both structures. 05/30/21 Patient is seen today in follow-up. Last Sunday the patient underwent an MRCP that showed massive heterogeneous enlargement of the entire pancreas. Dilated pancreatic duct and possible calculus in the distal pancreatic duct. Mildly dilated common bile duct. No significant dilation of the intrahepatic bile ducts. His could relate to some gallbladder dysfunction. Appearance of pancreas could be due to acute pancreatitis. Neoplastic process not excluded. However not suspected to have a tumor in view of the diffuse nature of the pancreatic abnormality. Also states yesterday he had an episode of increased abdominal pain so they repeated a CT of the abdomen and pelvis again showing extensive edema around the pancreas consistent with pancreatitis without significant change. to a no wall thickening consistent with edema which is similar to old exam. He states his pain is better than yesterday. He denies any nausea or vomiting. He's been tolerating a clear liquid diet and would like to advance. On today's labs WBC 7.5 hemoglobin 11.8 hematocrit 35 platelet count 303,000 total bilirubin 4.0 AST 90 ALT 90 alkaline phosphatase 483 lipase 65 05/31/2021 patient is seen today again in follow-up. He is looking much better and states abdominal pain improving. He states he still will get intermittent sharp pains right seminal 7 out of 10. He is tolerating a full liquid diet. He has been ambulating in the hallways. He is denying any nausea or vomiting. Repeat LFTs total bilirubin 3.4 AST 71 ALT 80 alkaline phosphatase 471. Labs continued to trend down. Objective - Vital Signs Vital signs: Vital Signs Temp 97.8 F 05/31/21 08:00 Pulse 96 05/31/21 08:00 Resp 16 05/31/21 08:00 BP 148/86 05/31/21 08:00 Pulse Ox 98 05/31/21 08:00 Intake & Output 05/30/21 05/31/21 05/31/21 18:59 06:59 18:59 Intake Total 280 Balance 280 Intake: Oral 280 Other: Voiding Method Toilet Toilet # Voids 1 2 - Exam General appearance: The patient is alert, oriented, appears in no acute distress. HET: Head is normocephalic and atraumatic. Conjunctiva pink. Sclera anicteric. Neck: Supple without lymphadenopathy. Abdomen: Soft, diffuse tenderness to palpation, mid abdomen and epigastric region, nondistended with bowel sounds. No guarding or rigidity. Extremities: Normal skin color and turgor. No pedal edema Skin: No rashes, no jaundice Neurological: No focal deficits. Alert and oriented x 3. - Labs CBC & Chem 7: 05/31/21 06:49 05/31/21 06:49 Labs: Abnormal Lab Results - Last 24 Hours (Table) 05/29/21 05/30/21 Range/Units 07:54 06:16 BUN <2 L <2 L (9.0-27.0) mg/dL Assessment and Plan (1) Acute pancreatitis Narrative/Plan: 35-year-old male with a history of alcoholic pancreatitis. First episode approximately 3 years ago with 5-6 sterilization's. His last hospitalization was approximately one year ago. Patient has a history of significant alcohol abuse for several years and was daily drinker of at least a pint a day. Approximately 6 months ago he states he cut back to about 2 days a week. He had his last drink on and this past Sunday started having abdominal pain. States pain has progressively gotten worse and is the worse it has ever been. He has no associated nausea or vomiting. He does have a decreased appetite. On admission he had no elevation in his LFTs with a lipase of 3000. Repeat labs today show elevation in his bilirubin AST and ALT with decrease in his lipase. There was no initial imaging so a CT of the abdomen and pelvis was ordered showing severe acute pancreatitis on chronic pancreatitis. There is no concern for a fluid-filled collection however there is significant inflammation as well as pancreatic ductal and biliary dilation with nonvisualization of both structures near the duodenal ampulla. The findings were called to by Dr. Vidal who was concerned of the severity of his pancreatitis. This was discussed with the patient for possible transfer to tertiary center for further evaluation and treatment, however there were no excepting hospitals due to over capacity. Patient continues to improve in his symptoms. Continue to treat symptomatically and supportively. Repeat imaging without any significant change. Current Visit: No Status: Acute Code(s): K85.90 - ACUTE PANCREATITIS WITHOUT NECROSIS OR INFECTION, UNSP SNOMED Code(s): 207042206 Plan: 1. Continue symptomatic and supportive care 2. Advance to a soft diet, low-fat 3. Protonix 40 mg twice a day 4. Continue pain management 5. Encouraged ambulation 6. Alcohol abstinence Thank you for this consultation, we will continue to follow. Dr. Nena Rodriguez I agree with the dictator's note, documented as a scribe by Bita Pineda.
--- NOTE | 2021-05-31 16:41 | P.PN ---
Subjective Progress Note Date: 05/31/21 Principal diagnosis: Pancreatitis Patient was examined at bedside and accompanying of any worsening symptomatology. Currently rates the pain a 7-10. He is passing gas and having a bowel movement. We will advance his diet to soft GI diet. Objective - Vital Signs Vital signs: Vital Signs Temp 98.4 F 05/31/21 15:00 Pulse 78 05/31/21 15:00 Resp 16 05/31/21 15:00 BP 136/86 05/31/21 15:00 Pulse Ox 98 05/31/21 15:00 Intake & Output 05/30/21 05/31/21 05/31/21 18:59 06:59 18:59 Intake Total 280 Balance 280 Weight 61.235 kg Intake: Oral 280 Other: Voiding Method Toilet Toilet # Voids 1 2 3 # Bowel Movements 2 - Exam Constitutional: No acute distress, conversant, pleasant Eyes:Anicteric sclerae, moist conjunctiva, no lid-lag, PERRLA, ENMT: Oropharynx clear, no erythema, exudates Neck: Supple, FROM, no masses, or JVD, No carotid bruits, No thyromegaly Lungs: Clear to auscultation, Clear to percussion, Normal respiratory effort, no accessory muscle use Cardiovascular: Heart regular in rate and rhythm, No murmurs, gallops, or rubs, No peripheral edema Abdominal: Mild abdominal discomfort noted on palpation. - Labs CBC & Chem 7: 05/31/21 06:49 05/31/21 06:49 Labs: Abnormal Lab Results - Last 24 Hours (Table) 05/29/21 05/30/21 05/31/21 Range/Units 07:54 06:16 06:49 RBC (4.30-5.90) m/uL MCV (80.0-100.0) fL Potassium 3.4 L (3.5-5.5) mmol/L Carbon Dioxide 27.6 H (20.0-27.5) mmol/L BUN <2 L <2 L (9.0-27.0) mg/dL Creatinine 0.5 L (0.6-1.5) mg/dL Glucose 121 H (70-110) mg/dL Total Bilirubin 3.40 H (0.30-1.20) mg/dL AST 71 H (14-35) U/L ALT 80 H (10-49) U/L Alkaline Phosphatase 471 H (41-126) U/L Total Protein 5.4 L (6.2-8.2) g/dL Albumin 3.0 L (3.8-4.9) g/dL Albumin/Globulin Ratio 1.30 L (1.60-3.17) g/dL 05/31/21 Range/Units 06:49 RBC 4.17 L (4.30-5.90) m/uL MCV 101.7 H (80.0-100.0) fL Potassium (3.5-5.5) mmol/L Carbon Dioxide (20.0-27.5) mmol/L BUN (9.0-27.0) mg/dL Creatinine (0.6-1.5) mg/dL Glucose (70-110) mg/dL Total Bilirubin (0.30-1.20) mg/dL AST (14-35) U/L ALT (10-49) U/L Alkaline Phosphatase (41-126) U/L Total Protein (6.2-8.2) g/dL Albumin (3.8-4.9) g/dL Albumin/Globulin Ratio (1.60-3.17) g/dL Assessment and Plan Plan: Assessment #1 severe acute pancreatitis on chronic respiratory secondary to EtOH #2 transaminitis secondary to above #3 EtOH dependence Plan -Aspiration/fall precaution -Advance started clear liquids and monitor -Advance diet to GI soft -Pain medication when necessary -Patient involving by gastrology -Continue with multivitamin, thiamine and folic acid -[facility] protocol -LFTs are trending down. Continue to monitor for GI DVT prophylaxis heparin
[2021-05-31] MEDS: PANTOPRAZOLE 40 MG TABLET PO SCH (18:10)
[2021-06-01] MEDS: MORPHINE SULFATE 4 MG/ML SYRINGE IV PRN ×5 (04:06→21:09)
[2021-06-01] MEDS: LACTATED RINGERS 1,000 ML IV SCH ×3 (04:12→14:27)
[2021-06-01] MEDS: THIAMINE 100 MG TAB PO SCH ×2 (09:05→17:39)
[2021-06-01] MEDS: FOLIC ACID 1 MG TAB PO SCH (09:05)
[2021-06-01] MEDS: NICOTINE 21MG/24HR PATCH TRANSDERM SCH (09:05)
[2021-06-01] MEDS: HEPARIN SODIUM,PORCINE/PF 5,000 UNIT/0.5 ML SYRINGE SQ SCH ×3 (09:05→21:09)
[2021-06-01] MEDS: MULTIVITAMINS, THERA 1 EACH TAB PO SCH (09:05)
[2021-06-01] MEDS: PANTOPRAZOLE 40 MG TABLET PO SCH (09:05)
[2021-06-01 11:11] LABS: ALT 66 U/L (4-49); AST 52 U/L (17-59); African American GFR (CKD) >90 (>60 ml/min/1.73 sqM); Albumin 3.1 g/dL (3.5-5.0); Albumin/Globulin Ratio 1.1; Alkaline Phosphatase 391 U/L (38-126); Anion Gap 6 mmol/L; Blood Urea Nitrogen 2 mg/dL (9-20); Carbon Dioxide 31 mmol/L (22-30); Chloride 100 mmol/L (98-107); Globulin 2.8 g/dL; Glucose 167 mg/dL (74-99); Non-African American GFR(CKD) >90 (>60 ml/min/1.73 sqM); Potassium 3.5 mmol/L (3.5-5.1); Sodium 137 mmol/L (137-145); Total Bilirubin 2.2 mg/dL (0.2-1.3); Total Protein 5.9 g/dL (6.3-8.2)
--- NOTE | 2021-06-01 14:28 | P.PN ---
Subjective Progress Note Date: 06/01/21 Principal diagnosis: Pancreatitis This is a 35-year-old male with a history of alcoholic pancreatitis first diagnosed approximately 3 years ago. Patient states he is likely about his pounds 5on fifth episode of pancreatitis and has been hospitalized in the past. He presented to the emergency department on 2 days ago with severe abdominal pain with no associated nausea or vomiting. He had a CT of the abdomen that showed severe inflammation of the pancreas with no evidence of pseudocyst. There was pancreatic ductal and biliary dilation with nonvisualization of both structures near the 2-lead left. There may be a reactive inflammatory change causing significant narrowing or occlusion of both structures. 05/30/21 Patient is seen today in follow-up. Last Sunday the patient underwent an MRCP that showed massive heterogeneous enlargement of the entire pancreas. Dilated pancreatic duct and possible calculus in the distal pancreatic duct. Mildly dilated common bile duct. No significant dilation of the intrahepatic bile ducts. His could relate to some gallbladder dysfunction. Appearance of pancreas could be due to acute pancreatitis. Neoplastic process not excluded. However not suspected to have a tumor in view of the diffuse nature of the pancreatic abnormality. Also states yesterday he had an episode of increased abdominal pain so they repeated a CT of the abdomen and pelvis again showing extensive edema around the pancreas consistent with pancreatitis without significant change. to a no wall thickening consistent with edema which is similar to old exam. He states his pain is better than yesterday. He denies any nausea or vomiting. He's been tolerating a clear liquid diet and would like to advance. On today's labs WBC 7.5 hemoglobin 11.8 hematocrit 35 platelet count 303,000 total bilirubin 4.0 AST 90 ALT 90 alkaline phosphatase 483 lipase 65 05/31/2021 patient is seen today again in follow-up. He is looking much better and states abdominal pain improving. He states he still will get intermittent sharp pains right seminal 7 out of 10. He is tolerating a full liquid diet. He has been ambulating in the hallways. He is denying any nausea or vomiting. Repeat LFTs total bilirubin 3.4 AST 71 ALT 80 alkaline phosphatase 471. Labs continued to trend down. 06/01/2021 the patient was seen and examined as follow-up. Today he is continues to have improvement and abdominal pain. He actually had 2 small bowel movements between yesterday evening and today. No nausea or vomiting. LFTs continue to trend down. Been afebrile. Objective - Vital Signs Vital signs: Vital Signs Temp 98.0 F 06/01/21 08:00 Pulse 78 06/01/21 08:00 Resp 17 06/01/21 08:00 BP 133/87 06/01/21 08:00 Pulse Ox 97 06/01/21 08:00 Intake & Output 05/31/21 06/01/21 06/01/21 18:59 06:59 18:59 Intake Total 118 300 Output Total 0 Balance 118 0 300 Weight 61.235 kg Intake: Oral 118 300 Output: Emesis 0 Other: Voiding Method Toilet Toilet # Voids 3 # Bowel Movements 2 - Exam General appearance: The patient is alert, oriented, appears in no acute distress. HET: Head is normocephalic and atraumatic. Conjunctiva pink. Sclera anicteric. Neck: Supple without lymphadenopathy. Abdomen: Soft, tenderness to palpation in epigastric region, improving, mid abdomen and epigastric region, nondistended with bowel sounds. No guarding or rigidity. Extremities: Normal skin color and turgor. No pedal edema Skin: No rashes, no jaundice Neurological: No focal deficits. Alert and oriented x 3. - Labs CBC & Chem 7: 05/31/21 06:49 06/01/21 10:30 Labs: Abnormal Lab Results - Last 24 Hours (Table) 05/31/21 05/31/21 Range/Units 06:49 06:49 RBC 4.17 L (4.30-5.90) m/uL MCV 101.7 H (80.0-100.0) fL Potassium 3.4 L (3.5-5.5) mmol/L Carbon Dioxide 27.6 H (20.0-27.5) mmol/L BUN <2 L (9.0-27.0) mg/dL Creatinine 0.5 L (0.6-1.5) mg/dL Glucose 121 H (70-110) mg/dL Total Bilirubin 3.40 H (0.30-1.20) mg/dL AST 71 H (14-35) U/L ALT 80 H (10-49) U/L Alkaline Phosphatase 471 H (41-126) U/L Total Protein 5.4 L (6.2-8.2) g/dL Albumin 3.0 L (3.8-4.9) g/dL Albumin/Globulin Ratio 1.30 L (1.60-3.17) g/dL Assessment and Plan (1) Acute pancreatitis Narrative/Plan: 35-year-old male with a history of alcoholic pancreatitis. First episode approximately 3 years ago with 5-6 sterilization's. His last hospitalization was approximately one year ago. Patient has a history of significant alcohol abuse for several years and was daily drinker of at least a pint a day. Approximately 6 months ago he states he cut back to about 2 days a week. He had his last drink on alyse and this past Sunday started having abdominal pain. States pain has progressively gotten worse and is the worse it has ever been. He has no associated nausea or vomiting. He does have a decreased appetite. On admission he had no elevation in his LFTs with a lipase of 3000. Repeat labs today show elevation in his bilirubin AST and ALT with decrease in his lipase. There was no initial imaging so a CT of the abdomen and pelvis was ordered showing severe acute pancreatitis on chronic pancreatitis. There is no concern for a fluid-filled collection however there is significant inflammation as well as pancreatic ductal and biliary dilation with nonvisualization of both structures near the duodenal ampulla. The findings were called to by Dr. Vidal who was concerned of the severity of his pancreatitis. This was discussed with the patient for possible transfer to tertiary center for further evaluation and treatment, however there were no excepting hospitals due to over capacity. Patient continues to improve in his symptoms. Continue to treat symptomatically and supportively. Repeat imaging without any significant change. Pancreatitis continues to improve. Pain improving as well as LFTs continued to trend down. No need for transfer to tertiary center. Patient to follow-up with gastroenterology for close outpatient follow-up. Alcohol abstinence discussed with patient again. Current Visit: No Status: Acute Code(s): K85.90 - ACUTE PANCREATITIS WITHOUT NECROSIS OR INFECTION, UNSP SNOMED Code(s): 146706721 (2) Alcohol abuse Current Visit: Yes Status: Acute Code(s): F10.10 - ALCOHOL ABUSE, UNCOMPLICATED SNOMED Code(s): 09698941 Plan: 1. Continue symptomatic and supportive care 2. Advance to a soft diet, low-fat 3. Protonix 40 mg daily 4. Continue pain management, recommend transitioning to oral pain medications and weaning off IV narcotics 5. Encouraged ambulation 6. Alcohol abstinence 7. Probable discharge within the next 1-2 days as long as patient continues to improve symptomatically as well as LFTs continue to trend down 8. Repeat CMP in the morning Thank you for this consultation, we will continue to follow. Dr. Nena Rodriguez I agree with the dictator's note, documented as a scribe by Bita Pineda.
--- NOTE | 2021-06-01 17:19 | P.PN ---
Subjective Progress Note Date: 06/01/21 This is a 35-year-old male with a history of alcoholic pancreatitis first diagnosed approximately 3 years ago. Patient states he is likely about his pounds 5on fifth episode of pancreatitis and has been hospitalized in the past. He presented to the emergency department on 2 days ago with severe abdominal pain with no associated nausea or vomiting. He had a CT of the abdomen that showed severe inflammation of the pancreas with no evidence of pseudocyst. There was pancreatic ductal and biliary dilation with nonvisualization of both structures near the 2-lead left. There may be a reactive inflammatory change causing significant narrowing or occlusion of both structures. 06/01/2021 the patient was seen and examined as follow-up. Today he is continues to have improvement and abdominal pain. He actually had 2 small bowel movements between yesterday evening and today. No nausea or vomiting. LFTs continue to trend down. Been afebrile. Objective - Vital Signs Vital signs: Vital Signs Temp 97.6 F 06/01/21 13:50 Pulse 84 06/01/21 13:50 Resp 16 06/01/21 13:50 BP 169/106 06/01/21 13:50 Pulse Ox 99 06/01/21 13:50 Intake & Output 05/31/21 06/01/21 06/01/21 18:59 06:59 18:59 Intake Total 118 835 Output Total 0 Balance 118 0 835 Weight 61.235 kg Intake: Oral 118 835 Output: Emesis 0 Other: Voiding Method Toilet Toilet # Voids 3 # Bowel Movements 2 - Exam General appearance: The patient is alert, oriented, appears in no acute distress. HET: Head is normocephalic and atraumatic. Conjunctiva pink. Sclera anicteric. Neck: Supple without lymphadenopathy. Abdomen: Soft, tenderness to palpation in epigastric region, improving, mid abdomen and epigastric region, nondistended with bowel sounds. No guarding or rigidity. Extremities: Normal skin color and turgor. No pedal edema Skin: No rashes, no jaundice Neurological: No focal deficits. Alert and oriented x 3. - Labs CBC & Chem 7: 05/31/21 06:49 06/01/21 10:30 Labs: Abnormal Lab Results - Last 24 Hours (Table) 05/31/21 06/01/21 Range/Units 06:49 10:30 Carbon Dioxide 31 H (22-30) mmol/L BUN <2 L 2 L (9.0-27.0) mg/dL Creatinine 0.44 L (0.66-1.25) mg/dL Glucose 167 H (74-99) mg/dL Total Bilirubin 2.2 H (0.2-1.3) mg/dL ALT 66 H (4-49) U/L Alkaline Phosphatase 391 H (38-126) U/L Total Protein 5.9 L (6.3-8.2) g/dL Albumin 3.1 L (3.5-5.0) g/dL Assessment and Plan Plan: Acute pancreatitis: 35-year-old male with a history of alcoholic pancreatitis. First episode approximately 3 years ago with 5-6 sterilization's. His last hospitalization was approximately one year ago. Patient has a history of significant alcohol abuse for several years and was daily drinker of at least a pint a day. Approximately 6 months ago he states he cut back to about 2 days a week. He had his last drink on and this past Sunday started having abdominal pain. States pain has progressively gotten worse and is the worse it has ever been. He has no associated nausea or vomiting. He does have a decreased appetite. On admission he had no elevation in his LFTs with a lipase of 3000. -Repeat labs today show elevation in his bilirubin AST and ALT with decrease in his lipase. There was no initial imaging so a CT of the abdomen and pelvis was ordered showing severe acute pancreatitis on chronic pancreatitis. There is no concern for a fluid-filled collection however there is significant inflammation as well as pancreatic ductal and biliary dilation with nonvisualization of both structures near the duodenal ampulla. The findings were called to by Dr. Vidal who was concerned of the severity of his pancreatitis. This was discussed with the patient for possible transfer to tertiary center for further evaluation and treatment, however there were no excepting hospitals due to over capacity. Patient continues to improve in his symptoms. Continue to treat symptomatically and supportively. Repeat imaging without any significant change. -Diet advanced to visualize and tolerated -Per GI notes patient does not require transfer to tertiary care facility since his LFTs and bilirubin is trending down and patient is feeling better Alcohol abuse: -No signs of alcohol withdrawal -Alcohol abstinence recommended Anticipated discharge in the next 24 hours
[2021-06-02] MEDS: MORPHINE SULFATE 4 MG/ML SYRINGE IV PRN ×3 (00:55→10:08)
[2021-06-02] MEDS: LACTATED RINGERS 1,000 ML IV SCH (05:46)
[2021-06-02] MEDS ORDERED: PANTOPRAZOLE 40 MG TABLET PO SCH (07:30)
[2021-06-02] MEDS: THIAMINE 100 MG TAB PO SCH (08:35)
[2021-06-02] MEDS: NICOTINE 21MG/24HR PATCH TRANSDERM SCH (08:35)
[2021-06-02] MEDS: MULTIVITAMINS, THERA 1 EACH TAB PO SCH (08:35)
[2021-06-02] MEDS: FOLIC ACID 1 MG TAB PO SCH (08:35)
[2021-06-02] MEDS: HEPARIN SODIUM,PORCINE/PF 5,000 UNIT/0.5 ML SYRINGE SQ SCH (08:35)
[2021-06-02 08:38] VITALS: TEMP 97.9
[2021-06-02 10:49] VITALS: RESP 18
[2021-06-02 11:04] LABS: HCT 36.4 % (39.6-50.0); HGB 11.9 g/dL (13.0-17.0); MCH 30.8 pg (27.0-32.0); MCHC 32.7 g/dL (32.0-37.0); MCV 94.3 fL (80.0-97.0); Mean Platelet Volume 10.8 fL (9.5-12.2); Platelet Count 377 X 10*3/uL (140-440); RBC 3.86 X 10*6/uL (4.40-5.60); RDW 14.4 % (11.5-14.5); WBC 8.69 X 10*3/uL (4.50-10.00)
[2021-06-02 11:15] LABS: Chol/HDL Ratio 5.39 Ratio; LDL Cholesterol,Calculated 120.2 mg/dL (0.0-131.0)
[2021-06-02 11:26] LABS: ALT 57 U/L (10-49); AST 27 U/L (14-35); African American GFR (CKD) 160.5 (60.0-200.0); Albumin 3.2 g/dL (3.8-4.9); Albumin/Globulin Ratio 1.33 (1.60-3.17); Alkaline Phosphatase 371 U/L (41-126); Blood Urea Nitrogen 5.7 mg/dL (9.0-27.0); Calcium 9.1 mg/dL (8.7-10.3); Carbon Dioxide 28.3 mmol/L (20.0-27.5); Chloride 101 mmol/L (96-109); Globulin 2.4 g/dL (1.6-3.3); Glucose 154 mg/dL (70-110); Non-African American GFR(CKD) 138.4 (60.0-200.0); Potassium 3.7 mmol/L (3.5-5.5); Sodium 140 mmol/L (135-145); Total Protein 5.6 g/dL (6.2-8.2)
--- NOTE | 2021-06-02 14:02 | P.DS ---
Providers Date of admission: 05/26/21 12:03 Expected date of discharge: 06/02/21 Attending physician: Nati Rodgers MD Consults: 05/25/21 23:36 Consult Physician Stat Consulting Provider: Alia Rodriguez Consult Reason/Comments: Acute Pancreatitis Do you want consulting provider notified?: Yes Primary care physician: Stated None Hospital Course: History of Present Illness The patient is a 35-year-old male with a PMH of EtOH abuse who presents to the emergency room with complaints of abdominal pain. The patient reports that he drank heavily on and since this past Sunday, he has had epigastric abdominal pain with radiation to the back. The patient reports a prior history of such pain, which is usually followed by bouts of heavy dri nking. He reports a long-standing history of excessive alcohol use, ranging from 1-2 pints several times a week. During his current episode, he reports that the pain is 7 out of 10 at rest, aching in nature, radiating to the back, with associated nausea without vomiting. Reports associated anorexia over the past 2 or 3 days. Denied chest pain, shortness of breath, vomiting, fever, chills, cough, diarrhea. He underwent an extensive evaluation in the emergency room with laboratory evaluation remarkable for lipase of 3993, and WBC count 18.1. Hospital course Acute alcoholic pancreatitis: 35-year-old male with a history of alcoholic pancreatitis. First episode approximately 3 years ago with 5-6 sterilization's. His last hospitalization was approximately one year ago. Patient has a history of significant alcohol abuse for several years and was daily drinker of at least a pint a day. Approximately 6 months ago he states he cut back to about 2 days a week. He had his last drink on and this past Sunday started having abdominal pain. States pain has progressively gotten worse and is the worse it has ever been. He has no associated nausea or vomiting. He does have a decreased appetite. On admission he had no elevation in his LFTs with a lipase of 3000. CT of the abdomen and pelvis was ordered showing severe acute pancreatitis on ch ronic pancreatitis. There is no concern for a fluid-filled collection however there is significant inflammation as well as pancreatic ductal and biliary dilation with nonvisualization of both structures near the duodenal ampulla. The findings were called to by Dr. Vidal who was concerned of the severity of his pancreatitis. This was discussed with the patient for possible transfer to tertiary center for further evaluation and treatment, however there were no excepting hospitals due to over capacity. Patient symptoms continued to improve and his LFTs and bilirubin are trending down. Patient currently tolerating soft diet for the past 2 days. -Diet advanced to visualize and tolerated -Per GI notes patient does not require transfer to tertiary care facility since his LFTs and bilirubin is trending down and patient is feeling better Alcohol abuse: -No signs of alcohol withdrawal -Alcohol abstinence recommended. Assessment: General appearance: The patient is alert, oriented, appears in no acute distress. HET: Head is normocephalic and atraumatic. Conjunctiva pink. Sclera anicteric. Neck: Supple without lymphadenopathy. Abdomen: Soft, tenderness to palpation in epigastric region, improving, mid abdomen and epigastric region, nondistended with bowel sounds. No guarding or rigidity. Extremities: Normal skin color and turgor. No pedal edema Skin: No rashes, no jaundice Neurological: No focal deficits. Alert and oriented x 3. Patient Condition at Discharge: Fair Plan - Discharge Summary Discharge Rx Participant: No New Discharge Prescriptions: No Action Magnesium 250 mg PO DAILY Folic Acid 0.8 mg PO DAILY Thiamine HCl [Vitamin B-1] 100 mg PO DAILY Potassium Gluconate [Potassium Gluconate ER] 99 mg PO DAILY Discharge Medication List Folic Acid 0.8 mg PO DAILY 05/25/21 [History] Magnesium 250 mg PO DAILY 05/25/21 [History] Potassium Gluconate [Potassium Gluconate ER] 99 mg PO DAILY 05/25/21 [History] Thiamine HCl [Vitamin B-1] 100 mg PO DAILY 05/25/21 [History] Follow up Appointment(s)/Referral(s): [facility] [[facility]] - 1-2 Days None,Stated [Primary Care Provider] - 1-2 days Patient Instructions/Handouts: Seizure/Epilepsy Discharge Instructions & Follow-Up, Pancreatitis (DC) Activity/Diet/Wound Care/Special Instructions: Activity as tolerated. Soft diet Discharge/Stand Alone Forms: AA Meetings [facility]
--- NOTE | 2021-06-02 14:17 | P.PN ---
Subjective Progress Note Date: 06/02/21 Principal diagnosis: Pancreatitis This is a 35-year-old male with a history of alcoholic pancreatitis first diagnosed approximately 3 years ago. Patient states he is likely about his pounds 5on fifth episode of pancreatitis and has been hospitalized in the past. He presented to the emergency department on 2 days ago with severe abdominal pain with no associated nausea or vomiting. He had a CT of the abdomen that showed severe inflammation of the pancreas with no evidence of pseudocyst. There was pancreatic ductal and biliary dilation with nonvisualization of both structures near the 2-lead left. There may be a reactive inflammatory change causing significant narrowing or occlusion of both structures. 05/30/21 Patient is seen today in follow-up. Last Sunday the patient underwent an MRCP that showed massive heterogeneous enlargement of the entire pancreas. Dilated pancreatic duct and possible calculus in the distal pancreatic duct. Mildly dilated common bile duct. No significant dilation of the intrahepatic bile ducts. His could relate to some gallbladder dysfunction. Appearance of pancreas could be due to acute pancreatitis. Neoplastic process not excluded. However not suspected to have a tumor in view of the diffuse nature of the pancreatic abnormality. Also states yesterday he had an episode of increased abdominal pain so they repeated a CT of the abdomen and pelvis again showing extensive edema around the pancreas consistent with pancreatitis without significant change. to a no wall thickening consistent with edema which is similar to old exam. He states his pain is better than yesterday. He denies any nausea or vomiting. He's been tolerating a clear liquid diet and would like to advance. On today's labs WBC 7.5 hemoglobin 11.8 hematocrit 35 platelet count 303,000 total bilirubin 4.0 AST 90 ALT 90 alkaline phosphatase 483 lipase 65 05/31/2021 patient is seen today again in follow-up. He is looking much better and states abdominal pain improving. He states he still will get intermittent sharp pains right seminal 7 out of 10. He is tolerating a full liquid diet. He has been ambulating in the hallways. He is denying any nausea or vomiting. Repeat LFTs total bilirubin 3.4 AST 71 ALT 80 alkaline phosphatase 471. Labs continued to trend down. 06/01/2021 the patient was seen and examined as follow-up. Today he is continues to have improvement and abdominal pain. He actually had 2 small bowel movements between yesterday evening and today. No nausea or vomiting. LFTs continue to trend down. Been afebrile. 06/02/2021 The patient is seen and examined sitting up in the bed. He states abdominal pain is significantly improved. He is tolerating a low-fat diet. He has been up and ambulating. LFTs continued to improve. Plan is for possible discharge home today Objective - Vital Signs Vital signs: Vital Signs Temp 97.9 F 06/02/21 08:00 Pulse 76 06/02/21 08:00 Resp 18 06/02/21 08:00 BP 145/96 06/02/21 08:00 Pulse Ox 99 06/02/21 08:00 Intake & Output 06/01/21 06/02/21 06/02/21 18:59 06:59 18:59 Intake Total 1071 Balance 1071 Intake: Oral 1071 Other: Voiding Method Toilet Toilet # Voids 2 - Exam General appearance: The patient is alert, oriented, appears in no acute distress. HET: Head is normocephalic and atraumatic. Conjunctiva pink. Sclera anicteric. Neck: Supple without lymphadenopathy. Abdomen: Soft, mild tenderness to palpation, right upper quadrant nondistended with bowel sounds. No guarding or rigidity. Extremities: Normal skin color and turgor. No pedal edema Skin: No rashes, no jaundice Neurological: No focal deficits. Alert and oriented x 3. - Labs CBC & Chem 7: 06/02/21 06:43 06/02/21 06:43 Labs: Abnormal Lab Results - Last 24 Hours (Table) 06/01/21 Range/Units 10:30 Carbon Dioxide 31 H (22-30) mmol/L BUN 2 L (9-20) mg/dL Creatinine 0.44 L (0.66-1.25) mg/dL Glucose 167 H (74-99) mg/dL Total Bilirubin 2.2 H (0.2-1.3) mg/dL ALT 66 H (4-49) U/L Alkaline Phosphatase 391 H (38-126) U/L Total Protein 5.9 L (6.3-8.2) g/dL Albumin 3.1 L (3.5-5.0) g/dL Assessment and Plan (1) Acute pancreatitis Narrative/Plan: 35-year-old male with a history of alcoholic pancreatitis. First episode approximately 3 years ago with 5-6 sterilization's. His last hospitalization was approximately one year ago. Patient has a history of significant alcohol abuse for several years and was daily drinker of at least a pint a day. Approx imately 6 months ago he states he cut back to about 2 days a week. He had his last drink on and this past Sunday started having abdominal pain. States pain has progressively gotten worse and is the worse it has ever been. He has no associated nausea or vomiting. He does have a decreased appetite. On admission he had no elevation in his LFTs with a lipase of 3000. Repeat labs t donna show elevation in his bilirubin AST and ALT with decrease in his lipase. There was no initial imaging so a CT of the abdomen and pelvis was ordered showing severe acute pancreatitis on chronic pancreatitis. There is no concern for a fluid-filled collection however there is significant inflammation as well as pancreatic ductal and biliary dilation with nonvisualization of both structures near the duodenal ampulla. The findings were called to by Dr. Vidal who was concerned of the severity of his pancreatitis. This was discussed with the patient for possible transfer to tertiary center for further evaluation and treatment, however there were no excepting hospitals due to over capacity. Patient continues to improve in his symptoms. Continue to treat symptomatically and supportively. Repeat imaging without any significant change. Pancreatitis continues to improve. Pain improving as well as LFTs continued to trend down. No need for transfer to tertiary center. Patient to follow-up with gastroenterology for close outpatient follow-up. Alcohol abstinence discussed with patient again. Current Visit: No Status: Acute Code(s): K85.90 - ACUTE PANCREATITIS WITHOUT NECROSIS OR INFECTION, UNSP SNOMED Code(s): 278869689 (2) Alcohol abuse Current Visit: Yes Status: Acute Code(s): F10.10 - ALCOHOL ABUSE, UNCOMPLICATED SNOMED Code(s): 17872600 Plan: 1. Continue symptomatic and supportive care 2. Advance to a soft diet, low-fat 3. Protonix 40 mg daily 4. Continue pain management, recommend transitioning to oral pain medications and weaning off IV narcotics 5. Encouraged ambulation 6. Alcohol abstinence 7. Patient is cleared by gastroenterology for discharge. Patient will need outpatient follow-up in 2-3 weeks. Thank you for this consultation, we will continue to follow. Dr. Nena Rodriguez I agree with the dictator's note, documented as a scribe by Bita Pineda.
[2021-06-02 14:23] VITALS: BP 148/92; PULSE 75
== END 2021-06-02 16:03 | disposition home or self-care (01) | DRG 440 ==
LOC: EC 18:37 → 6NMEDSUR 23:32 → OBSVTOIN 05-26 12:03
PROVIDERS: ADMIT Internal Medicine; ATTEND Internal Medicine
DX: K85.20 Alcohol induced acute pancreatitis without necrosis or infection (principal); F10.20 Alcohol dependence, uncomplicated; K86.1 Other chronic pancreatitis; F17.200 Nicotine dependence, unspecified, uncomplicated; Z71.41 Alcohol abuse counseling and surveillance of alcoholic; Z79.899 Other long term (current) drug therapy
CPT/HCPCS: 36415; 74177; 74181; 80053; 80061; 81001; 83605; 83690; 83735; 84100; 84478; 85025; 85027; 85610; 87635; 96361; 96374; 96375; 99285

== ENCOUNTER 2024-06-08 17:27 | Inpatient (IN) | payer OTHER ==
--- NOTE | 2024-06-08 17:37 | ED ---
Weakness HPI - General Stated complaint: weakness Time Seen by Provider: 06/08/24 17:35 Source: RN notes reviewed, old records reviewed Mode of arrival: EMS Limitations: no limitations, physical limitation - History of Present Illness Initial comments: This is a 39-year-old male with severe weakness. Patient has history of pancreatitis history of smoking no significant medical history otherwise. Patient states he is looked at and been looked at for pancreatic cancer which s he believes was normal testing. Patient presents today with significant thirst and able to eat or drink and significant recent weight loss MD Complaint: generalized weakness, lack of energy, difficulty walking -: days(s) Location: generalized Severity: severe Severity scale (1-10): 9 Consistency: constant Improves with: none Worsens with: none Context: recent illness Associated Symptoms: confusion, loss of appetite, nausea/vomiting - Related Data Home Medications Medication Instructions Recorded Confirmed Docusate [Colace] 100 mg PO BID PRN 06/08/24 06/08/24 Famotidine [Pepcid] 20 mg PO DAILY 06/08/24 06/08/24 Ibuprofen [Motrin Ib] 800 mg PO BID PRN 06/08/24 06/08/24 Allergies Allergy/AdvReac Type Severity Reaction Status Date / Time No Known Allergies Allergy Verified 06/08/24 18:54 Review of Systems ROS Statement: Those systems with pertinent positive or pertinent negative responses have been documented in the HPI. ROS Other: All systems not noted in ROS Statement are negative. Past Medical History Additional Past Medical History / Comment(s): pancrentitis History of Any Multi-Drug Resistant Organisms: None Reported Past Surgical History: No Surgical Hx Reported Past Anesthesia/Blood Transfusion Reactions: No Reported Reaction Past Psychological History: No Psychological Hx Reported Smoking Status: Current every day smoker Past Alcohol Use History: Occasional Past Drug Use History: None Reported General Exam Limitations: altered mental status General appearance: alert, in no apparent distress Head exam: Present: atraumatic, normocephalic, normal inspection Eye exam: Present: normal appearance, PERRL, EOMI. Absent: scleral icterus, conjunctival injection, periorbital swelling ENT exam: Present: normal exam. Absent: mucous membranes moist Neck exam: Present: normal inspection. Absent: tenderness, meningismus, lymphadenopathy Respiratory exam: Present: normal lung sounds bilaterally. Absent: respiratory distress, wheezes, rales, rhonchi, stridor Cardiovascular Exam: Present: normal rhythm, tachycardia, normal heart sounds. Absent: systolic murmur, diastolic murmur, rubs, gallop, clicks GI/Abdominal exam: Present: soft, normal bowel sounds. Absent: distended, tenderness, guarding, rebound, rigid Extremities exam: Present: normal inspection, full ROM, normal capillary refill. Absent: tenderness, pedal edema, joint swelling, calf tenderness Back exam: Present: normal inspection Neurological exam: Present: alert, oriented X3, CN II-XII intact Psychiatric exam: Present: normal affect, normal mood Skin exam: Present: warm, dry, intact, normal color. Absent: rash Course Vital Signs 06/08/24 06/08/24 17:38 18:42 Temperature 97.2 F L Pulse Rate 111 H 105 H Respiratory 16 16 Rate Blood Pressure 153/108 158/114 O2 Sat by Pulse 100 95 Oximetry - Reevaluation(s) Reevaluation #1: 06/08/24 17:56 Records reviewed Reevaluation #2: 06/08/24 18:30 Patient symptoms are improving here in the ER Reevaluation #3: 06/08/24 18:30 Patient informed of results questions answered Reevaluation #4: Was pt. sent in by a medical professional or institution (, PA, WHITE SHOE EXAMINER, urgent care, hospital, or [facility]...) When possible be specific @ -no Did you speak to anyone other than the patient for history (EMS, parent, family, police, friend...)? What history was obtained from this source @ -no Did you review nursing and triage notes (agree or disagree)? Why? @ -agree Are old charts reviewed (outside hosp., previous admission, EMS record, old EKG, old radiological studies, urgent care reports/EKG's, [facility] records)? Report findings @ -yes Differential Diagnosis (chest pain, altered mental status, abdominal pain women, abdominal pain men, vaginal bleeding, weakness, fever, dyspnea, syncope, headache, dizziness, GI bleed, back pain, seizure, CVA, palpatations, mental health, musculoskeletal)? @ -prior EKG interpreted by me (3pts min.). @ -yes X-rays interpreted by me (1pt min.). @ -yes negative for acute disease CT interpreted by me (1pt min.). @ -no U/S interpreted by me (1pt. min.). @ -no What testing was considered but not performed or refused? (CT, X-rays, U/S, red booker)? Why? @ -none What meds were considered but not given or refused? Why? @ -none Did you discuss the management of the patient with other professionals (professionals i.e. Dr., PA, WHITE SHOE EXAMINER, lab, RT, psych nurse, health care social worker, business lawyer, teacher, intelligence officer basic, case packer)? Give summary @ -no Was smoking cessation discussed for >3mins.? @ -no Was critical care preformed (if so, how long)? @ -no Were there social determinants of health that impacted care today? How? (Homelessness, low income, unemployed, alcoholism, drug addiction, transportation, low edu. Level, literacy, decrease access to med. care, [facility]ci, rehab)? @ -none Was there de-escalation of care discussed even if they declined (Discuss DNR or withdrawal of care, Hospice)? DNR status @ -no What co-morbidities impacted this encounter? (DM, HTN, Smoking, COPD, CAD, Cancer, CVA, ARF, Chemo, Hep., AIDS, mental health diagnosis, sleep apnea, morbid obesity)? @ -none Was patient admitted / discharged? Hospital course, mention meds given and route, prescriptions, significant lab abnormalities, going to OR and other pertinent info. @ - Undiagnosed new problem with uncertain prognosis? @ -no Drug Therapy requiring intensive monitoring for toxicity (Heparin, Nitro, Insulin, Cardizem)? @ -no Were any procedures done? @ -no Diagnosis/symptom? @ - Acute, or Chronic, or Acute on Chronic? @ -Acute Uncomplicated (without systemic symptoms) or Complicated (systemic symptoms)? @ -Complicated Side effects of treatment? @ -no Exacerbation, Progression, or Severe Exacerbation? @ -exacerbation Poses a threat to life or bodily function? How? (Chest pain, [place], [place], pneumonia, PE, COPD, DKA, ARF, appy, cholecystitis, CVA, Diverticulitis, Homicidal, Suicidal, threat to staff... and all critical care pts) @ -yes Reevaluation #5: Differential Weakness: Hypoglycemia, shock, sepsis, hyponatremia, anemia, infection, [place], ETOH, adverse medicine reaction, overdose, stroke, this is not meant to be an all-inclusive list. - Consultations Consultation #1: Spoke with [facility] who agrees to admit this patient EKG Findings - EKG Comments: EKG Findings:: EKG sinus tachycardia 112 OH 142 QRS 91 QTc 391 - EKG Results: EKG: interpreted by KEY Medical Decision Making - Medical Decision Making 39 male concern for history of alcohol abuse coming in for new onset diabetes and DKA likely complicated for malnutrition dehydration and history of pancreatitis - Lab Data Result diagrams: 06/08/24 17:48 06/08/24 17:48 Lab Results 06/08/24 06/08/24 06/08/24 Range/Units 17:47 17:48 17:48 WBC 19.0 H (3.8-10.6) k/uL RBC 5.18 (4.30-5.90) m/uL Hgb 16.6 (13.0-17.5) gm/dL Hct 50.6 (39.0-53.0) % MCV 97.7 (80.0-100.0) fL MCH 32.0 (25.0-35.0) pg MCHC 32.7 (31.0-37.0) g/dL RDW 12.1 (11.5-15.5) % Plt Count 369 (150-450) k/uL MPV 8.7 Neutrophils % 89 % Lymphocytes % 6 % Monocytes % 3 % Eosinophils % 1 % Basophils % 1 % Neutrophils # 16.9 H (1.3-7.7) k/uL Lymphocytes # 1.2 (1.0-4.8) k/uL Monocytes # 0.5 (0-1.0) k/uL Eosinophils # 0.1 (0-0.7) k/uL Basophils # 0.1 (0-0.2) k/uL PT 9.9 L (10.0-12.5) sec INR 0.9 (<1.2) APTT 19.6 L (22.0-30.0) sec VBG pH (7.31-7.41) VBG pCO2 (37-51) mmHg VBG HCO3 (24-28) mmol/L Sodium (137-145) mmol/L Potassium (3.5-5.1) mmol/L Chloride (98-107) mmol/L Carbon Dioxide (22-30) mmol/L Anion Gap mmol/L BUN (9-20) mg/dL Creatinine (0.66-1.25) mg/dL Est GFR (CKD-EPI)AfAm (>60 ml/min/1.73 sqM) Est GFR (CKD-EPI)NonAf (>60 ml/min/1.73 sqM) Glucose (74-99) mg/dL POC Glucose (mg/dL) >600 H* (70-110) mg/dL POC Glu [employer] Development Manager ID Austyn Benítez Plasma Lactic Acid Rob (0.7-2.0) mmol/L Calcium (8.4-10.2) mg/dL Phosphorus (2.5-4.5) mg/dL Magnesium (1.6-2.3) mg/dL Total Bilirubin (0.2-1.3) mg/dL AST (17-59) U/L ALT (4-49) U/L Alkaline Phosphatase (38-126) U/L Troponin I (0.000-0.034) ng/mL NT-Pro-B Natriuret Pep pg/mL Total Protein (6.3-8.2) g/dL Albumin (3.5-5.0) g/dL Lipase (23-300) U/L TSH (0.465-4.680) mIU/L Serum Alcohol mg/dL Acetone, Qual (Negative) Influenza Type A (PCR) (Not Detectd) Influenza Type B (PCR) (Not Detectd) RSV (PCR) (Not Detectd) SARS-CoV-2 (PCR) (Not Detectd) 06/08/24 06/08/24 06/08/24 Range/Units 17:48 17:48 17:48 WBC (3.8-10.6) k/uL RBC (4.30-5.90) m/uL Hgb (13.0-17.5) gm/dL Hct (39.0-53.0) % MCV (80.0-100.0) fL MCH (25.0-35.0) pg MCHC (31.0-37.0) g/dL RDW (11.5-15.5) % Plt Count (150-450) k/uL MPV Neutrophils % % Lymphocytes % % Monocytes % % Eosinophils % % Basophils % % Neutrophils # (1.3-7.7) k/uL Lymphocytes # (1.0-4.8) k/uL Monocytes # (0-1.0) k/uL Eosinophils # (0-0.7) k/uL Basophils # (0-0.2) k/uL PT (10.0-12.5) sec INR (<1.2) APTT (22.0-30.0) sec VBG pH (7.31-7.41) VBG pCO2 (37-51) mmHg VBG HCO3 (24-28) mmol/L Sodium 131 L (137-145) mmol/L Potassium 6.3 H* (3.5-5.1) mmol/L Chloride 87 L (98-107) mmol/L Carbon Dioxide 9 L* (22-30) mmol/L Anion Gap 35 mmol/L BUN 32 H (9-20) mg/dL Creatinine 1.08 (0.66-1.25) mg/dL Est GFR (CKD-EPI)AfAm >90 (>60 ml/min/1.73 sqM) Est GFR (CKD-EPI)NonAf 85 (>60 ml/min/1.73 sqM) Glucose 781 H* (74-99) mg/dL POC Glucose (mg/dL) (70-110) mg/dL POC Glu Manpower Development Manager ID Plasma Lactic Acid Rob 3.1 H* (0.7-2.0) mmol/L Calcium 10.3 H (8.4-10.2) mg/dL Phosphorus 7.1 H (2.5-4.5) mg/dL Magnesium 2.6 H (1.6-2.3) mg/dL Total Bilirubin 1.1 (0.2-1.3) mg/dL AST 41 (17-59) U/L ALT 35 (4-49) U/L Alkaline Phosphatase 224 H (38-126) U/L Troponin I <0.012 (0.000-0.034) ng/mL NT-Pro-B Natriuret Pep 49 pg/mL Total Protein 9.2 H (6.3-8.2) g/dL Albumin 5.2 H (3.5-5.0) g/dL Lipase 1183 H (23-300) U/L TSH 1.260 (0.465-4.680) mIU/L Serum Alcohol <10 mg/dL Acetone, Qual Positive (Negative) Influenza Type A (PCR) (Not Detectd) Influenza Type B (PCR) (Not Detectd) RSV (PCR) (Not Detectd) SARS-CoV-2 (PCR) (Not Detectd) 06/08/24 06/08/24 Range/Units 17:57 17:57 WBC (3.8-10.6) k/uL RBC (4.30-5.90) m/uL Hgb (13.0-17.5) gm/dL Hct (39.0-53.0) % MCV (80.0-100.0) fL MCH (25.0-35.0) pg MCHC (31.0-37.0) g/dL RDW (11.5-15.5) % Plt Count (150-450) k/uL MPV Neutrophils % % Lymphocytes % % Monocytes % % Eosinophils % % Basophils % % Neutrophils # (1.3-7.7) k/uL Lymphocytes # (1.0-4.8) k/uL Monocytes # (0-1.0) k/uL Eosinophils # (0-0.7) k/uL Basophils # (0-0.2) k/uL PT (10.0-12.5) sec INR (<1.2) APTT (22.0-30.0) sec VBG pH 7.19 L* (7.31-7.41) VBG pCO2 33 L (37-51) mmHg VBG HCO3 13 L (24-28) mmol/L Sodium (137-145) mmol/L Potassium (3.5-5.1) mmol/L Chloride (98-107) mmol/L Carbon Dioxide (22-30) mmol/L Anion Gap mmol/L BUN (9-20) mg/dL Creatinine (0.66-1.25) mg/dL Est GFR (CKD-EPI)AfAm (>60 ml/min/1.73 sqM) Est GFR (CKD-EPI)NonAf (>60 ml/min/1.73 sqM) Glucose (74-99) mg/dL POC Glucose (mg/dL) (70-110) mg/dL POC Glu Manpower Development Manager ID Plasma Lactic Acid Rob (0.7-2.0) mmol/L Calcium (8.4-10.2) mg/dL Phosphorus (2.5-4.5) mg/dL Magnesium (1.6-2.3) mg/dL Total Bilirubin (0.2-1.3) mg/dL AST (17-59) U/L ALT (4-49) U/L Alkaline Phosphatase (38-126) U/L Troponin I (0.000-0.034) ng/mL NT-Pro-B Natriuret Pep pg/mL Total Protein (6.3-8.2) g/dL Albumin (3.5-5.0) g/dL Lipase (23-300) U/L TSH (0.465-4.680) mIU/L Serum Alcohol mg/dL Acetone, Qual (Negative) Influenza Type A (PCR) Not Detected (Not Detectd) Influenza Type B (PCR) Not Detected (Not Detectd) RSV (PCR) Not Detected (Not Detectd) SARS-CoV-2 (PCR) Not Detected (Not Detectd) - EKG Data -: EKG Interpreted by Me - Radiology Data Radiology results: report reviewed (Chest x-ray is negative for acute disease), image reviewed Disposition Clinical Impression: Alcohol abuse, Dehydration, Weakness, New onset type 2 diabetes mellitus, DKA (diabetic ketoacidosis), Acute pancreatitis, Chronic pancreatitis due to chronic alcoholism Disposition: ADMITTED IP TO THIS [facility] Condition: Serious Is patient prescribed a controlled substance at d/c from ED?: No Time of Disposition: 18:30
[2024-06-08 17:50] LABS: Glucose,Whole Blood >600 mg/dL (70-110)
[2024-06-08] MEDS: ONDANSETRON 4 MG/2 ML VIAL IVP STA (17:52)
[2024-06-08] MEDS: PANTOPRAZOLE 40 MG/10 ML VIAL IVP STA (17:52)
[2024-06-08] MEDS: SODIUM CHLORIDE 0.9% 1,000 ML IV STA (17:52)
[2024-06-08 18:12] LABS: Basophils # (A) 0.1 k/uL (0-0.2); Basophils % (A) 1 %; Eosinophils # (A) 0.1 k/uL (0-0.7); Eosinophils % (A) 1 %; HCT 50.6 % (39.0-53.0); HGB 16.6 gm/dL (13.0-17.5); Lymphocytes # (A) 1.2 k/uL (1.0-4.8); Lymphocytes % (A) 6 %; MCHC 32.7 g/dL (31.0-37.0); MCV 97.7 fL (80.0-100.0); Mean Platelet Volume 8.7; Monocytes # (A) 0.5 k/uL (0-1.0); Monocytes % (A) 3 %; Neutrophils # (A) 16.9 k/uL (1.3-7.7); Neutrophils % (A) 89 %; Platelet Count 369 k/uL (150-450); RBC 5.18 m/uL (4.30-5.90); RDW 12.1 % (11.5-15.5)
[2024-06-08 18:21] LABS: VBG PH 7.19 (7.31-7.41)
[2024-06-08 18:27] LABS: INR 0.9 (<1.2); Prothrombin Time 9.9 sec (10.0-12.5)
[2024-06-08] MEDS ORDERED: ONDANSETRON 4 MG/2 ML VIAL IVP PRN (18:27)
[2024-06-08] MEDS ORDERED: NALOXONE 0.4 MG/ML 1 ML VIAL IV PRN (18:27)
[2024-06-08] MEDS ORDERED: LORazepam 2 MG/ML INJ IV PRN ×3 (18:30)
[2024-06-08] MEDS ORDERED: LORazepam 0.5 MG TAB PO PRN (18:30)
[2024-06-08] MEDS ORDERED: LORazepam 1 MG TAB PO PRN ×4 (18:30)
[2024-06-08 18:37] LABS: Partial Thromboplastin Time 19.6 sec (22.0-30.0)
[2024-06-08 18:39] LABS: ALT 35 U/L (4-49); African American GFR (CKD) >90 (>60 ml/min/1.73 sqM); Albumin 5.2 g/dL (3.5-5.0); Alcohol <10 mg/dL; Anion Gap 35 mmol/L; Blood Urea Nitrogen 32 mg/dL (9-20); Calcium 10.3 mg/dL (8.4-10.2); Chloride 87 mmol/L (98-107); Lipase 1183 U/L (23-300); Non-African American GFR(CKD) 85 (>60 ml/min/1.73 sqM); Phosphorus 7.1 mg/dL (2.5-4.5); Sodium 131 mmol/L (137-145); Total Bilirubin 1.1 mg/dL (0.2-1.3); Total Protein 9.2 g/dL (6.3-8.2)
[2024-06-08 18:46] LABS: Influenza A Not Detected (Not Detectd); Influenza B Not Detected (Not Detectd); RSV Not Detected (Not Detectd)
[2024-06-08 18:49] LABS: NT-Pro-B-Type Natriuretic Pept 49 pg/mL
--- NOTE | 2024-06-08 18:56 | XR ---
EXAMINATION TYPE: XR chest 1V portable DATE OF EXAM: 06/08/2024 6:15 PM COMPARISON: None CLINICAL INDICATION: Male, 39 years old with history of weak; [facility] TECHNIQUE: XR chest 1V portable Frontal view of the chest. FINDINGS: Lungs/Pleura: There is no evidence of pleural effusion, focal consolidation, or pneumothorax. Pulmonary vascularity: Unremarkable. Heart/mediastinum: Cardiomediastinal silhouette is unremarkable. Musculoskeletal: No acute osseous pathology. IMPRESSION: No acute cardiopulmonary disease/process. [facility], , 06/08/2024 6:54 PM
[2024-06-08 19:00] LABS: Appearance,Urine Clear (Clear); Bilirubin,Urine Negative (Negative); Blood,Urine Negative (Negative); Color,Urine Colorless; Glucose,Urine (UA) 4+ (Negative); Leukocyte Esterase,Urine Negative (Negative); Nitrite,Urine Negative (Negative); PH, Urine 5.5 (5.0-8.0); Protein,Urine Negative (Negative); Specific Gravity,Urine 1.026 (1.001-1.035); Urobilinogen,Urine <2.0 mg/dL (<2.0)
[2024-06-08] MEDS: INSULIN REGULAR 100 UNIT in SODIUM CHLORIDE 0.9% 100 ML IV SCH (19:02)
[2024-06-08] MEDS: SODIUM CHLORIDE 0.9% 1,000 ML IV SCH ×2 (19:03→19:04)
[2024-06-08 19:16] LABS: Ketones,Urine 4+ (Negative)
[2024-06-08 19:16] LABS: Carbon Dioxide 9 mmol/L (22-30)
[2024-06-08 19:18] LABS: Magnesium 2.6 mg/dL (1.6-2.3); Potassium 6.3 mmol/L (3.5-5.1)
[2024-06-08 19:19] LABS: AST 41 U/L (17-59); Alkaline Phosphatase 224 U/L (38-126); Glucose 781 mg/dL (74-99)
[2024-06-08 20:02] LABS: Glucose,Whole Blood >600 mg/dL (70-110)
[2024-06-08 20:21] LABS: African American GFR (CKD) >90 (>60 ml/min/1.73 sqM); Anion Gap 35 mmol/L; Blood Urea Nitrogen 31 mg/dL (9-20); Chloride 93 mmol/L (98-107); Non-African American GFR(CKD) 89 (>60 ml/min/1.73 sqM); Potassium 5.5 mmol/L (3.5-5.1); Sodium 135 mmol/L (137-145)
[2024-06-08] MEDS: FAMOTIDINE 20 MG/2 ML VIAL IV STA (20:38)
[2024-06-08 20:40] LABS: Carbon Dioxide 7 mmol/L (22-30); Glucose 684 mg/dL (74-99)
[2024-06-08 21:30] LABS: Glucose,Whole Blood 588 mg/dL (70-110)
[2024-06-08 22:31] LABS: Glucose,Whole Blood 552 mg/dL (70-110)
[2024-06-08 23:40] LABS: Glucose,Whole Blood 531 mg/dL (70-110)
[2024-06-09 00:55] LABS: Glucose,Whole Blood 462 mg/dL (70-110)
[2024-06-09 01:21] LABS: African American GFR (CKD) >90 (>60 ml/min/1.73 sqM); Anion Gap 19 mmol/L; Blood Urea Nitrogen 29 mg/dL (9-20); Carbon Dioxide 12 mmol/L (22-30); Chloride 100 mmol/L (98-107); Glucose 470 mg/dL (74-99); Non-African American GFR(CKD) >90 (>60 ml/min/1.73 sqM); Sodium 131 mmol/L (137-145)
[2024-06-09 02:28] LABS: Glucose,Whole Blood 342 mg/dL (70-110)
[2024-06-09 03:43] LABS: Glucose,Whole Blood 295 mg/dL (70-110)
[2024-06-09] MEDS: D5-0.45% NACL WITH KCL 20MEQ/L 1,000 ML IV SCH (04:06)
[2024-06-09 04:52] LABS: Glucose,Whole Blood 252 mg/dL (70-110)
[2024-06-09 06:42] LABS: Glucose,Whole Blood 239 mg/dL (70-110)
[2024-06-09 07:34] LABS: Basophils # (A) 0.1 k/uL (0-0.2); Basophils % (A) 1 %; Eosinophils # (A) 0.2 k/uL (0-0.7); Eosinophils % (A) 1 %; HCT 38.6 % (39.0-53.0); Lymphocytes # (A) 2.5 k/uL (1.0-4.8); Lymphocytes % (A) 14 %; MCH 31.4 pg (25.0-35.0); MCHC 33.4 g/dL (31.0-37.0); MCV 93.9 fL (80.0-100.0); Mean Platelet Volume 8.2; Monocytes # (A) 0.6 k/uL (0-1.0); Monocytes % (A) 3 %; Neutrophils # (A) 13.7 k/uL (1.3-7.7); Neutrophils % (A) 80 %; Platelet Count 256 k/uL (150-450); RBC 4.12 m/uL (4.30-5.90); RDW 12.1 % (11.5-15.5); WBC 17.2 k/uL (3.8-10.6)
[2024-06-09 07:44] LABS: HGB 12.9 gm/dL (13.0-17.5)
[2024-06-09 07:59] LABS: ALT 27 U/L (4-49); AST 27 U/L (17-59); African American GFR (CKD) >90 (>60 ml/min/1.73 sqM); Albumin 3.7 g/dL (3.5-5.0); Alkaline Phosphatase 150 U/L (38-126); Anion Gap 14 mmol/L; Blood Urea Nitrogen 23 mg/dL (9-20); Calcium 9.7 mg/dL (8.4-10.2); Carbon Dioxide 15 mmol/L (22-30); Chloride 103 mmol/L (98-107); Glucose 243 mg/dL (74-99); Lipase 1209 U/L (23-300); Non-African American GFR(CKD) >90 (>60 ml/min/1.73 sqM); Phosphorus 2.2 mg/dL (2.5-4.5); Potassium 4.2 mmol/L (3.5-5.1); Sodium 132 mmol/L (137-145); Total Bilirubin 0.3 mg/dL (0.2-1.3); Total Protein 6.9 g/dL (6.3-8.2)
[2024-06-09 08:26] LABS: Glucose,Whole Blood 237 mg/dL (70-110)
[2024-06-09] MEDS: PANTOPRAZOLE 40 MG/10 ML VIAL IV SCH (09:55)
[2024-06-09] MEDS: MULTIVITAMINS, THERA 1 EACH TAB PO SCH (09:55)
[2024-06-09] MEDS: THIAMINE 100 MG TAB PO SCH (09:55)
[2024-06-09] MEDS: FOLIC ACID 1 MG TAB PO SCH (09:55)
[2024-06-09 11:00] LABS: Glucose,Whole Blood 269 mg/dL (70-110)
[2024-06-09] MEDS: MORPHINE SULFATE 4 MG/ML SYRINGE IV PRN (11:23)
[2024-06-09 12:05] LABS: Glucose,Whole Blood 216 mg/dL (70-110)
[2024-06-09 12:25] LABS: ALT 25 U/L (4-49); AST 25 U/L (17-59); African American GFR (CKD) >90 (>60 ml/min/1.73 sqM); Albumin 3.7 g/dL (3.5-5.0); Alkaline Phosphatase 143 U/L (38-126); Anion Gap 11 mmol/L; Blood Urea Nitrogen 19 mg/dL (9-20); Calcium 9.4 mg/dL (8.4-10.2); Carbon Dioxide 19 mmol/L (22-30); Chloride 101 mmol/L (98-107); Glucose 202 mg/dL (74-99); Non-African American GFR(CKD) >90 (>60 ml/min/1.73 sqM); Potassium 4.1 mmol/L (3.5-5.1); Sodium 131 mmol/L (137-145); Total Bilirubin 0.6 mg/dL (0.2-1.3); Total Protein 6.6 g/dL (6.3-8.2)
[2024-06-09 13:05] LABS: Glucose,Whole Blood 258 mg/dL (70-110)
[2024-06-09 14:04] LABS: Glucose,Whole Blood 258 mg/dL (70-110)
[2024-06-09] MEDS ORDERED: HYDROcodone/APAP 5-325MG 1 EACH TAB PO PRN (14:30)
[2024-06-09 15:04] LABS: Glucose,Whole Blood 230 mg/dL (70-110)
[2024-06-09 16:07] LABS: Glucose,Whole Blood 156 mg/dL (70-110)
[2024-06-09] MEDS: HEPARIN SODIUM,PORCINE 5,000 UNIT/ML 1 ML VIAL SQ SCH (16:32)
[2024-06-09 16:57] LABS: ALT 25 U/L (4-49); AST 41 U/L (17-59); African American GFR (CKD) >90 (>60 ml/min/1.73 sqM); Albumin 3.3 g/dL (3.5-5.0); Alkaline Phosphatase 158 U/L (38-126); Anion Gap 10 mmol/L; Blood Urea Nitrogen 15 mg/dL (9-20); Calcium 9.3 mg/dL (8.4-10.2); Carbon Dioxide 18 mmol/L (22-30); Chloride 102 mmol/L (98-107); Glucose 151 mg/dL (74-99); Non-African American GFR(CKD) >90 (>60 ml/min/1.73 sqM); Potassium 3.7 mmol/L (3.5-5.1); Sodium 130 mmol/L (137-145); Total Bilirubin 0.7 mg/dL (0.2-1.3); Total Protein 6.2 g/dL (6.3-8.2)
[2024-06-09 17:18] LABS: Glucose,Whole Blood 115 mg/dL (70-110)
[2024-06-09 18:02] LABS: Glucose,Whole Blood 110 mg/dL (70-110)
[2024-06-09 19:06] LABS: Glucose,Whole Blood 130 mg/dL (70-110)
[2024-06-09 20:00] LABS: Glucose,Whole Blood 163 mg/dL (70-110)
[2024-06-09 20:57] LABS: ALT 34 U/L (4-49); AST 84 U/L (17-59); African American GFR (CKD) >90 (>60 ml/min/1.73 sqM); Albumin 3.1 g/dL (3.5-5.0); Alkaline Phosphatase 237 U/L (38-126); Anion Gap 7 mmol/L; Blood Urea Nitrogen 13 mg/dL (9-20); Calcium 9.1 mg/dL (8.4-10.2); Carbon Dioxide 18 mmol/L (22-30); Chloride 103 mmol/L (98-107); Glucose 168 mg/dL (74-99); Non-African American GFR(CKD) >90 (>60 ml/min/1.73 sqM); Sodium 128 mmol/L (137-145); Total Bilirubin 1.1 mg/dL (0.2-1.3); Total Protein 6.2 g/dL (6.3-8.2)
[2024-06-09 21:34] LABS: Glucose,Whole Blood 204 mg/dL (70-110)
[2024-06-09] MEDS: INSULIN DETEMIR (LEVEMIR) 100 UNIT/ML SYR SQ SCH (22:06)
[2024-06-09 23:11] LABS: Glucose,Whole Blood 233 mg/dL (70-110)
--- NOTE | 2024-06-10 01:23 | HP ---
HISTORY AND PHYSICAL CHIEF COMPLAINT: Weakness and diabetic ketoacidosis. HISTORY OF PRESENT ILLNESS: This is a 39-year-old gentleman with a past medical history of pancreatitis, was admitted with generalized weakness and tiredness. The patient was found to have alcohol abuse, dehydration, diabetes mellitus, and diabetic ketoacidosis and the patient is being admitted for further evaluation and treatment. The blood sugar was found to be elevated up to 781 on admission with significant evidence of ketosis. There is no history of any fever, rigors, or chills at this time. PAST MEDICAL HISTORY: 1. History of EtOH. 2. History of pancreatitis. Rest of the history and rest of the chart is also reviewed. HOME MEDICATIONS: Reviewed include Motrin, dose and rest of medications reviewed. ALLERGIES: None. FAMILY HISTORY: No history of heart disease or strokes in the family. SOCIAL HISTORY: History of occasional alcohol intake and smoking. REVIEW OF SYSTEMS: Fourteen-point review is negative except as mentioned earlier. PHYSICAL EXAMINATION: VITAL SIGNS: Pulse is 87, blood pressure 152/95, respirations 14. HEENT: Conjunctivae normal. NECK: No JVD. CARDIOVASCULAR: S1, S2. RESPIRATIONS: Breath sounds diminished at the bases. A few scattered rhonchi. ABDOMEN: Soft, mild diffuse tenderness in the upper abdomen. LEGS: No edema. NERVOUS SYSTEM: Nonfocal. SKIN: No ulcer, rash, bleeding. JOINTS: No active deforming arthropathy. LABORATORY DATA: Reviewed. ASSESSMENT: 1. New onset diabetes mellitus and acute diabetic ketoacidosis present on admission. 2. History of pancreatitis. 3. History of EtOH. 4. Hypertension. 5. Multiple medical issues. RECOMMENDATIONS AND DISCUSSION: This is a 39-year-old gentleman, who presented with multiple complex medical issues, we will monitor the patient closely. I would recommend continue with DKA protocol. Otherwise, I would recommend protocol for alcohol withdrawal. Repeat labs. Closely monitor. Guarded prognosis. Further recommendations to follow. See orders for further details. MMODL / IJN: [id number] /
[2024-06-10 06:03] LABS: Glucose,Whole Blood 168 mg/dL (70-110)
[2024-06-10] MEDS: INSULIN ASPART (NovoLOG) 100 UNIT/ML VIAL SQ SCH ×2 (06:31)
[2024-06-10 07:56] VITALS: RESP 14
[2024-06-10 09:37] LABS: Basophils % (A) 0 %; Eosinophils # (A) 0.1 k/uL (0-0.7); Eosinophils % (A) 1 %; HCT 35.5 % (39.0-53.0); HGB 11.6 gm/dL (13.0-17.5); Lymphocytes # (A) 0.9 k/uL (1.0-4.8); Lymphocytes % (A) 9 %; MCH 30.8 pg (25.0-35.0); MCHC 32.8 g/dL (31.0-37.0); MCV 93.7 fL (80.0-100.0); Mean Platelet Volume 8.6; Monocytes # (A) 0.4 k/uL (0-1.0); Monocytes % (A) 4 %; Neutrophils # (A) 8.7 k/uL (1.3-7.7); Neutrophils % (A) 85 %; Platelet Count 177 k/uL (150-450); RBC 3.79 m/uL (4.30-5.90); RDW 12.1 % (11.5-15.5); WBC 10.2 k/uL (3.8-10.6)
[2024-06-10 09:52] LABS: ALT 124 U/L (4-49); AST 365 U/L (17-59); African American GFR (CKD) >90 (>60 ml/min/1.73 sqM); Alkaline Phosphatase 436 U/L (38-126); Amylase 163 U/L (30-110); Anion Gap 6 mmol/L; Blood Urea Nitrogen 10 mg/dL (9-20); Calcium 8.9 mg/dL (8.4-10.2); Carbon Dioxide 19 mmol/L (22-30); Chloride 104 mmol/L (98-107); Glucose 130 mg/dL (74-99); Lipase 936 U/L (23-300); Non-African American GFR(CKD) >90 (>60 ml/min/1.73 sqM); Potassium 3.6 mmol/L (3.5-5.1); Sodium 129 mmol/L (137-145); Total Bilirubin 1.3 mg/dL (0.2-1.3); Total Protein 6.1 g/dL (6.3-8.2)
[2024-06-10 11:45] VITALS: BMI 16.4
[2024-06-10 11:49] LABS: Glucose,Whole Blood 170 mg/dL (70-110)
[2024-06-10 15:29] VITALS: BP 142/91; PULSE 99; TEMP 98.6
== END 2024-06-10 16:42 | disposition home or self-care (01) | DRG 637 ==
LOC: EC 17:27 → 3SCARD 18:27
PROVIDERS: ADMIT Hospitalist; ATTEND Hospitalist
DX: E11.10 Type 2 diabetes mellitus with ketoacidosis without coma (principal); K85.20 Alcohol induced acute pancreatitis without necrosis or infection; E46 Unspecified protein-calorie malnutrition; K86.0 Alcohol-induced chronic pancreatitis; F10.20 Alcohol dependence, uncomplicated; I10 Essential (primary) hypertension; Z68.1 Body mass index [BMI] 19.9 or less, adult; F17.210 Nicotine dependence, cigarettes, uncomplicated; R53.1 Weakness; E86.0 Dehydration; R00.0 Tachycardia, unspecified; Z11.52 Encounter for screening for COVID-19
CPT/HCPCS: 36415; 71045; 80051; 80053; 80320; 81003; 82009; 82140; 82150; 82565; 82803; 82947; 83036; 83605; 83690; 83735; 83880; 84100; 84443; 84484; 84520; 85025; 85610; 85730; 87636; 93005; 96361; 96374; 96375; 96376; 99285